=== PATIENT | female | born 1975 | race Caucasian/White ===

== ENCOUNTER 2023-10-04 15:53 | Emergency (ER) | payer BC ==
--- OUTSIDE RECORDS SUMMARY | 2023-10-04 15:56 | XMS REPORT | Clinical Summary ---
:1975 Author Organization [facility] MD [facility] Address [address] [place] [address] Care Team Providers Name Role Phone Mandeep Collazo MD Primary Care Provider Cori Weathers MD Unavailable Urszula Lechuga MD Unavailable Shakir Altman MD Unavailable Jena Son MD Unavailable Allergies No known active allergies Medications Medication Sig Dispensed Refills Start End Date Status Date esomeprazole Take 40 mg by 0 Act joanie (NexIUM) 40 MG mouth every capsule morning. montelukast Take 10 mg by 0 Acti ve (SINGULAIR) 10 mouth daily. mg tablet zolpidem Take 1 tablet by 5 Act joanie (AMBIEN) 10 mg mouth daily. 7 tabletIndication s: Restart this medication on the evening of 12/20/20 venlafaxine Take by mouth 0 Acti ve (EFFEXOR) 37.5 twice daily. mg tablet multivitamin Take by mouth. 0 Ac tive (THERAGRAN) tablet Saxenda 3 mg/0.5 Take 0.6 mg by 0 Active mL (18 mg/3 mL) mouth daily. 2 pnij Inject subcutaneously 0.6mg/day x 7 days then increase by 0.6 mg more til 3mg/day omeprazole Take 1 capsule by 0 A ctive (PriLOSEC) 40 MG mouth daily. 2 capsule tamoxifen Take 1 tablet (20 90 tablet 3 Ac tive (NOLVADEX) 20 mg mg) by mouth 3 tabletIndication daily. s: Cancer of right female breast, not otherwise specified tamoxifen Take 1 tablet (20 90 tablet 3 12/02/19 Di scontinued (NOLVADEX) 20 mg mg) by mouth 1 23 (Reorder) tabletIndication daily. 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 Cancer Staging: Clinical stage from 11/16: Stage IA (T1b, N0, M0) - Signed by Alexsandra Mary MD on 11/17/2016 Encounters Date Type Department Care Team Description 12/02/2022 Refill MD [facility] in [place], Radha B, Cancer of r ight [place] - Breast RN female b reast, not Medical Oncology otherwise specified [address] [facility] [address] [place] [address] 10/13/2022 Follow-Up MD [facility] in [place], Tabitha B, Infiltrating duct 11:00 AM ASSOCIATE CHIEF NURSE [place] - [place] carcinoma, NOS of Medical Oncology Norm, upper-inner quadrant [address] [facility] [place], ART GLASS SETTER of breast < Female; [place] Right> (Primary Dx) [address] [place] [address] 10/13/2022 Follow-Up MD [facility] in [place], Infiltrating duct 10:00 AM ASSOCIATE CHIEF NURSE [place] - Breast MD Mandeep carcinom a, NOS of Surgery Oncology upper-inner quadrant [address] [facility] of breast < Female; [address] Right> [place] [address] 10/13/2022 Ancillary Diagnostic Imaging Damaris Freitas, Infiltr ating duct 7:45 AM ASSOCIATE CHIEF NURSE Procedure in [facility] [place] [id number] [facility] upper-inner quadrant [place] of breast <F emale; [address], [address] [place] [address] 10/13/2022 Travel after 10/04/2022 Immunizations Name Administration Dates Next Due Influenza (IM) Preservative Free 06/22/2020 Influenza, Unspecified 10/10/2019, 10/10/2019 Pneumococcal Conjugate 13-Valent 06/22/2020 Tdap 08/02/2018, 08/02/2018 Surgical History Surgery Date Site/Laterality Comments BACK SURGERY 05/06/2015 - Disc fusion L4-5 , S1 06/05/2015 LAPAROSCOPIC CHOLECYSTECOMY 10/06/2015 - 11/05/2015 CARPAL TUNNEL RELEASE Bilateral SC MASTECTOMY PARTIAL 11/04/2016 Right Procedure: SEGMENTAL MASTECTOMY - NEE DLE LOC; Surgeon: Mandeep Collazo MD; Location: [facility] OR; Service: BREAST SC INTRAOP SENTINEL LYMPH 11/04/2016 Right Proced ure: INTRAOPERATIVE NODE ID W/DYE INJECTION LYMPHATI C MAPPING; Surgeon: Mandeep Collazo MD; Location: [facility] OR; Service: BREAST SC BX/EXC LYMPH NODE OPEN 11/04/2016 Axilla/Right Proced ure: SENTINEL NODE DEEP AXILLARY NODE BIOPSY - AXIL LA; Surgeon: Mandeep Collazo MD; [facility]; Service: BREAST SC REVISION OF 12/19/2020 Breast/Right Procedure: HO ION OF RECONSTRUCTED BREAST RECONSTRUCT ED BREAST; Surgeon: Shakir Altman MD; Location: [facility]; Service: PLS - P LASTIC SURGERY SC MASTOPEXY 12/19/2020 Breast/Left Procedure: MASTO PEXY FOR SYMMETRY; Surgeo n: Shakir Altman MD; Lo cation: [facility] OR; Service : PLS - PLASTIC SURGERY SC GRAFTING OF AUTOLOGOUS 12/19/2020 Abdomen/N/A Proced ure: GRAFTING OF FAT BY LIPO 50 CC OR LESS AUTOLO GOUS FAT HARVESTED BY LIPOSUCTION T ECHNIQUE TO BREASTS; Surg anita: Shakir Altman MD; [facility]; Service: PLS - P LASTIC SURGERY SPINAL CORD STIMULATOR 12/07/2021 - IMPLANT 01/03/2022 Medical History Medical History Date Comments Restless legs syndrome (RLS) Arthritis Migraine Gastroesophageal reflux disease Environmental allergy Degeneration of lumbar intervertebral disc Social History Tobacco Use Types Packs/Day Years Used Date Smoking Tobacco: Never Smokeless Tobacco: Never Alcohol Use Standard Drinks/Week Comments Yes 0 (1 standard drink = 0.6 oz pure alcoho l) infrequent social consumption Sex and Gender Information Value Date Recorded Sex Assigned at Not on file Gender Identity Not on file Sexual Orientation Not on file Job Start Date Occupation Industry Not on file Not on file Not on file Obstetrics History Para Term AB IAB SAB Ectopic Multiple Living Live Births 3 2 Date Outcome GA Total Labor/2nd/3rd Weight Sex Delivery Anes PTL Brianna A 1 A5 Name Clin Labor Para Para Comments Menarche 9 Parity 20 Breast fed 4 mo OCP use ~26 yrs (discontinued yesterday) Currently on her menstrual period Last Filed Vital Signs Vital Sign Reading Time Taken Comments Blood Pressure 129/89 10/13/2022 8:49 AM ASSOCIATE CHIEF NURSE Pulse 82 10/13/2022 8:49 AM ASSOCIATE CHIEF NURSE Temperature 36.4 C (97.5 F) 10/13/2022 8:49 AM ASSOCIATE CHIEF NURSE Respiratory Rate 18 10/13/2022 8:49 AM ASSOCIATE CHIEF NURSE Oxygen Saturation - - Inhaled Oxygen Concentration - - Weight 71.7 kg (158 lb 1.1 oz) 10/13/2022 8:50 AM ASSOCIATE CHIEF NURSE Height - - Body Mass Index 28.01 10/12/2016 10:06 AM ASSOCIATE CHIEF NURSE Plan of Treatment Date Type Department Care Team Description 10/13/2023 8:20 Ancillary Procedure Diagnostic Imaging Preston Zheng, AM ASSOCIATE CHIEF NURSE in [facility] [employer] [address] [facility] [address] [place], [place] [address] [address] [place] [address] [phone] 10/13/2023 9:05 Ancillary Procedure Diagnostic Imaging Preston Zheng, AM ASSOCIATE CHIEF NURSE in [facility] [employer] [address] [facility] [address] [facility] [address] [address] [phone] 10/13/2023 1:00 Follow-Up MD [facility] in [place], PM ASSOCIATE CHIEF NURSE [facility] - Medical ART GLASS SETTER Oncology [address] [facility] [id number] [place] [address] [phone] Health Maintenance Due Date Last Done Comments COVID-19 Vaccination (#1) 1980 Procedures Procedure Name Priority Date/Time Associated Diagnosis Comme nts MAMMO DIGITAL Routine 10/13/2022 7:51 AM Infiltrating duct Res ults for this DIAGNOSTIC ASSOCIATE CHIEF NURSE carcinoma, NOS of procedure are in BILATERAL [place] upper-inner quadrant the results of breast <Female; section. Right> after 10/04/2022 Results Mammography Digital Diagnostic Bilateral with Ronald (10/13/2022 7:51 AM ASSOCIATE CHIEF NURSE) Anatomical Region Laterality Modality Breast Bilateral Mammography Specimen (Source) Anatomical Collection Method Collection Time Re ceived Time Location / / Volume Laterality 10/13/2022 7:53 AM ASSOCIATE CHIEF NURSE Impressions 10/13/2022 7:53 AM ASSOCIATE CHIEF NURSE There is no mammographic evidence of malignancy. Follow-up mammogram in 1 year is recomme nded. BI-RADS Category 2: Benign Finding(s) Narrative 10/13/2022 7:53 AM ASSOCIATE CHIEF NURSE CLINICAL INDICATION: Patient is a 47 year old female and is s een for history of breast cancer MAMMO DIGITAL DIAGNOSTIC BILATERAL W LUIS O Digital Mammogram evaluated with Compute r Aided Detection (CAD). COMPARISON: The present examination has been compare d to prior imaging studies performed at [facility] on 10/23/2017, 10/18/2018, 10/17/2019, 10/14/2020 and 10/13/2021. FINDINGS: There are scattered areas of fibroglandu lar density. Postoperative changes are noted. No merino spicious mass, asymmetry, calcification, or distortion is seen. Tomosynthesis performed in CC and MLO pr ojections. Procedure Note Sami Webster MD - 10/13/2022 CLINICAL INDICATION: Patient is a 47 year old female and is s een for history of breast cancer MAMMO DIGITAL DIAGNOSTIC BILATERAL W LUIS O Digital Mammogram evaluated with Compute r Aided Detection (CAD). COMPARISON: The present examination has been compare d to prior imaging studies performed at [facility] on 10/23/2017, 10/18/2018, 10/17/2019, 10/14/2020 and 10/13/2021. FINDINGS: There are scattered areas of fibroglandu lar density. Postoperative changes are noted. No susp icious mass, asymmetry, calcification, or distortion is seen. Tomosynthesis performed in CC and MLO pr ojections. IMPRESSION: There is no mammographic evidence of mal ignancy. Follow-up mammogram in 1 year is recomme nded. 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
--- OUTSIDE RECORDS SUMMARY | 2023-10-04 16:00 | XMS REPORT | Continuity of Care Document ---
:1975 Author Organization [facility] t Address [address] [place] [address] Care Team Providers Name Role Phone [phone] Primary Care Physician Unavailable SYSTEM, PROVIDER NOT IN Attending Clinician Unavailable GUILLE MENDOZA Attending Clinician Unavailable [email or web address] Attending Clinician Unavailable Radha Waggoner RN Attending Clinician Unavailable Tabitha Dooley Attending Clinician Maliha Zheng APRN Attending Clinician TABITHA HANNA Attending Clinician Unavailable Mandeep Boyle MD Attending Clinician MANDEEP BOYLE Attending Clinician Unavailable Damaris Francis Attending Clinician DAMARIS PRUITT Attending Clinician Unavailable ASUNCION GIORDANO Attending Clinician Unavailable WAI HORN Attending Clinician Unavailable GEOVANI FALK Attending Clinician Unavailable GUILLE MENDOZA DDS Attending Clinician Unavailable Doctor Unassigned, [place] Attending Clinician Unavailable Lab, Adc Fam Pob I Attending Clinician Unavailable Ayala Caruso Attending Clinician AYALA GALO Attending Clinician Unavailable MATT WERNER Attending Clinician Unavailable [email or web address] Admitting Clinician Unavailable Payers Payer Name Policy Type Policy Number Effective Date Expiration Date S celio BCBSTX PPO [id number] 2016 00:00:00 [place] [id number] 2016 00:[place]00 [place] Problems Condition Condition Condition Status Onset Resolution Last Treating Co mments Source Name Details Category Date Date Treatment Clinician Date 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 [place] 00 [place] 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 rmann bral disc bral disc (disorder) (disorder) Problem 10/30/2015 [facility] Care Givers Gastroesop Gastroeso Problem 2015-10-30 Memoria hageal phageal 05:02:28 l reflux reflux [place] disease disease (disorder) (disorder) Problem 10/30/2015 [facility] Low back Low back Problem 2015-10-30 Memoria pain pain 05:02:28 l (disorder) (disorder) He rmann Problem 10/30/2015 [facility] Restless Restless Problem 2015-10-30 Memoria legs legs 05:02:28 l (disorder) (disorder) He rmann Problem 10/30/2015 [facility] Allergies, Adverse Reactions, Alerts Allergy Allergy Status Severity Reaction(s) Onset Inactive Treating Comm ents Source Name Type Date Date Clinician NO KNOWN Drug Active Univers ALLERGIE Class ity of S [facility] No Known No Known Active Memori a Medicati Medicati l on on [place] Allergie Allergie s s Social History Social Habit Start Date Stop Date Quantity Comments Source Exposure to Not sure [facility] SARS-CoV-2 (event) Sexual orientation [facility] History of Social 2022-10-13 2022-10-13 Univers ity of function 00:00:00 00:00:00 [facility] Alcohol intake 2022-10-13 2022-10-13 Current drinker of Un iversity of 00:00:00 00:00:00 alcohol (finding) [facility] Tobacco use and 2018-02-23 2018-02-23 Smokeless tobacco Un iversity of exposure 00:00:00 00:00:00 non-user Tommy benz [facility] Alcohol Comment 2016-10-12 2016-10-12 infrequent social Un iversity of 00:00:00 00:00:00 consumption Tommy waddell [facility] Sex Ass[birth year] At [birth year] Universit y of 00:00:00 00:00:00 Tommy benz [facility] Smoking Status Start Date Stop Date Source Unknown if ever smoked [facility] Never smoked tobacco [facility] Medications Ordered Filled Start Stop Current Ordering Indication Dosage Frequency Signature Comments Components Source Medication Medication Date Date Medication? Clinician (SIG) Name Name tamoxifen Yes Cancer of 20mg Take 1 U nivers (NOLVADEX) 1-27 right tablet (20 it y of 20 mg 00:00: female mg) by [place] tablet 00 breast, not mouth otherwise daily. [facility] [facility] esomeprazol 2021-11 Yes 40mg Take 40 mg Univers e (NexIUM) 2-08 by mouth ity o f 40 MG 09:24: every [place] capsule 57 morning. MD [facility] [facility] montelukast 2021-11 Yes 10mg Take 10 mg Univers (SINGULAIR) 2-08 by mouth ity of 10 mg 09:24: daily. [place] tablet 57 MD [facility] [facility] venlafaxine 2021-11 Yes Take by Uni vers (EFFEXOR) 2-08 mouth ity of 37.5 mg 09:24: twice [place] tablet 57 daily. MD [facility] [facility] multivitami 2021-11 Yes Take by Uni vers n 2-08 mouth. ity of (THERAGRAN) 09:24: [place] tablet 57 MD [facility] [facility] Saxenda 3 Yes .6mg Take 0.6 Univ ers mg/0.5 mL 6-01 mg by ity of (18 mg/3 00:00: mouth [place] mL) pnij 00 daily. MD Lidya bridges usly Cancer 0.6mg/day Center x 7 days then increase by 0.6 mg more til 3mg/day omeprazole Yes 40mg Take 1 Unive rs (PriLOSEC) 3-23 capsule by ity of 40 MG 00:00: mouth [place] capsule 00 daily. MD [facility] [facility] tamoxifen 0 2022- No Cancer of 20mg Take 1 Univers (NOLVADEX) 06-15 right tablet (20 i ty of 20 mg 00:00: 00:00 female mg) by [place] tablet 00 :00 breast, not mouth MD otherwise daily. [facility] [facility] zolpidem Yes 10mg Take 1 Univers (AMBIEN) 10 4-05 tablet by ity of mg tablet 00:00: mouth [place] 00 daily. MD Ad[place] bridges [facility] Saline Lock 2014-11 No Yasir 10 mL, M emoria Flush 2-23 Gallego Soln, IV l 14:49: OUTREACH [employer]UCATION [employer] WORKER Push, As Indicated PRN for flush, first dose 10/28/15 8:49:00 HAND FOLDER Dilaudid 2014-11 No Yasir 0.5 mg = Me moria 2-23 Gallego 0.25 mL, l 14:49: OUTREACH [employer] WORKER Injection, [place] 00 IV Push, q10min PRN for pain severe (7-10), first dose 10/28/15 8:49:00 HAND FOLDER LR 1,000 mL 2014-11 No Yasir 1,000 mL, Memoria 2-23 Gallego IV, 75 l 14:49: OUTREACH AND [employer]UCATION SOCIAL WORKER mL/hr, start date 10/28/15 8:49:00 HAND FOLDER Saline Lock 2014-11 No Yasir 10 mL, M emoria Flush 2-23 Gallego Soln, IV l 14:49: OUTREACH AND [employer]UCATION SOCIAL WORKER Push, As [place] 00 Indicated PRN for flush, first dose 10/28/15 8:49:00 HAND FOLDER Dilaudid 2014-11 No Yasir 0.5 mg = Me moria 2-23 Gallego 0.25 mL, l 14:49: OUTREACH AND [employer]UC[employer] SOCIAL WORKER Injection, [place] 00 IV Push, q10min PRN for pain severe (7-10), first dose 10/28/15 8:49:00 HAND FOLDER LR 1,000 mL 2014-11 No Yasir 1,000 mL, Memoria 2-23 Gallego IV, 75 l 14:49: OUTREACH AND [employer]UCATION SOCIAL WORKER mL/hr, Moreno 00 start date 10/28/15 8:49:00 HAND FOLDER Dilaudid 2014-11 No Yasir 0.5 mg = Me moria 2-23 Gallego 0.25 mL, l 14:49: OUTREACH AND [employer]UC[employer] SOCIAL WORKER Injection, [place] 00 IV Push, q10min PRN for pain severe (7-10), first dose 10/28/15 8:49:00 HAND FOLDER LR 1,000 mL 2014-11 No Yasir 1,000 mL, Memoria 2- Gallego IV, 75 l 14:49: OUTREACH AND [employer]UCATION SOCIAL WORKER mL/hr, start date 10/28/15 8:49:00 HAND FOLDER Saline Lock 2014-11 No Yasir 10 mL, M emoria Flush 2- Gallego Soln, IV l 14:49: OUTREACH AND [employer]UC[employer] SOCIAL WORKER Push, As Indicated PRN for flush, first dose 10/28/15 8:49:00 HAND FOLDER [facility] 2014-11 No Mesfin 300 mL, Memoria Medication - Barrett Soln-IV, l 14:46: IV, Once, first dose 10/28/15 8:46:00 HAND FOLDER, stop date 10/28/15 8:46:00 HAND FOLDER [facility] 2014-11 No Mesfin 300 mL, Memoria Medication - Barrett Soln-IV, l 14:46: IV, Once, first dose 10/28/15 8:46:00 HAND FOLDER, stop date 10/28/15 8:46:00 HAND FOLDER [facility] 2014-11 No Mesfin 300 mL, Memoria Medication - Barrett Soln-IV, l 14:46: IV, Once, first dose 10/28/15 8:46:00 HAND FOLDER, stop date 10/28/15 8:46:00 HAND FOLDER lidocaine 2014-11 No Yasir 1 mL, Cruz pablito 2-23 Gallego Injection, l 14:26: OUT[employer]ACH [employer] WORKER IV, Once, first dose 10/28/15 8:26:00 HAND FOLDER, stop date 10/28/15 8:26:00 HAND FOLDER propofol 2014-11 No Yasir 40 mg = 4 M emoria 2-23 Gallego mL, l 14:26: OUTREACH AND [employer] SOC[employer] WORKER Emulsion, IV, Once, first dose 10/28/15 8:26:00 HAND FOLDER, stop date 10/28/15 8:26:00 HAND FOLDER lidocaine 2014-11 No Yasir 1 mL, Cruz pablito 2-23 Gallego Injection, l 14:26: OUTREACH AND [employer]ATION SOC[employer] WORKER IV, Once, first dose 10/28/15 8:26:00 HAND FOLDER, stop date 10/28/15 8:26:00 HAND FOLDER propofol 2014-11 No Yasir 40 mg = 4 M emoria 2- Gallego mL, l 14:26: OUTREACH AND [employer]UCATION SOCIAL WORKER Emulsion, Moreno 00 IV, Once, first dose 10/28/15 8:26:00 HAND FOLDER, stop date 10/28/15 8:26:00 HAND FOLDER lidocaine 2014-11 No Yasir 1 mL, Cruz pablito - Gallego Injection, l 14:26: OUTREACH AND EDUCATION SOCIAL WORKER IV, Once, [place] 00 first dose 10/28/15 8:26:00 HAND FOLDER, stop date 10/28/15 8:26:00 HAND FOLDER propofol 2014-11 No Yasir 40 mg = 4 M emoria - Gallego mL, l 14:26: OUTREACH AND EDUCATION SOCIAL WORKER Emulsion, [place] 00 IV, Once, first dose 10/28/15 8:26:00 HAND FOLDER, stop date 10/28/15 8:26:00 HAND FOLDER fentaNYL 2014-11 No Yasir 100 mcg = M emoria 2- Gallego 2 mL, l 14:22: OUTREACH AND [employer]UCATION SOCIAL WORKER Injection, Moreno 00 IV, Once, first dose 10/28/15 8:22:00 HAND FOLDER, stop date 10/28/15 8:22:00 HAND FOLDER midazolam 2014-11 No Yasir 2 mg = 2 M emoria - Gallego mL, l 14:22: OUTREACH AND [employer]UCATION SOCIAL WORKER Injection, [place] 00 IV, Once, first dose 10/28/15 8:22:00 HAND FOLDER, stop date 10/28/15 8:22:00 HAND FOLDER fentaNYL 2014-11 No Yasir 100 mcg = M emoria 2- Gallego 2 mL, l 14:22: OUTREACH AND [employer]UCATION SOC[employer] WORKER Injection, Moreno 00 IV, Once, first dose 10/28/15 8:22:00 HAND FOLDER, stop date 10/28/15 8:22:00 HAND FOLDER midazolam 2014-11 No Yasir 2 mg = 2 M emoria -23 Gallego mL, l 14:22: OUTREACH AND [employer]UCATION SOCIAL WORKER Injection, Moreno 00 IV, Once, first dose 10/28/15 8:22:00 HAND FOLDER, stop date 10/28/15 8:22:00 HAND FOLDER fentaNYL 2014-11 No Yasir 100 mcg = M emoria 2-23 Gallego 2 mL, l 14:22: OUTREACH AND EDUCATION SOCIAL WORKER Injection, Moreno 00 IV, Once, first dose 10/28/15 8:22:00 HAND FOLDER, stop date 10/28/15 8:22:00 HAND FOLDER midazolam 2014-11 No Yasir 2 mg = 2 M emoria 2-23 Gallego mL, l 14:22: OUTREACH AND [employer]UCATION SOCIAL WORKER Injection, Moreno 00 IV, Once, first dose 10/28/15 8:22:00 HAND FOLDER, stop date 10/28/15 8:22:00 HAND FOLDER LR 1,000 mL 2014-11 No Herman K 1,000 mL, Memoria 2-23 Lewis IV, 30 l 12:06: mL/hr, [place] 00 start date 10/28/15 6:06:00 HAND FOLDER Lidocaine 2014-11 No Herman K 0.2 mL, Mem oria 2% 0.2 mL 2-23 Lewis Injection, l IV Start 12:06: Subcutaneo Her keene [[facility]] 00 us, Once PRN for other (see comment), first dose 10/28/15 6:06:00 HAND FOLDER LR 1,000 mL 2014-11 No Herman K 1,000 mL, Memoria 2-23 Lewis IV, 30 l 12:06: mL/hr, Moreno 00 start date 10/28/15 6:06:00 HAND FOLDER Lidocaine 2014-11 No Herman K 0.2 mL, Mem oria 2% 0.2 mL 2-23 Lewis Injection, l IV Start 12:06: Subcutaneo [facility] keene [[facility]] 00 us, Once PRN for other (see comment), first dose 10/28/15 6:06:00 HAND FOLDER LR 1,000 mL 2014-11 No Herman K 1,000 mL, Memoria 2-23 Lewis IV, 30 l 12:06: mL/hr, Moreno 00 start date 10/28/15 6:06:00 HAND FOLDER Lidocaine 2014-11 No Herman K 0.2 mL, Mem oria 2% 0.2 mL 2-23 Lewis Injection, l IV Start 12:06: Subcutaneo [facility] keene [[place]] 00 us, Once PRN for other (see comment), first dose 10/28/15 6:06:00 HAND FOLDER Keflex 500 No Mohammad 500 mg = 1 Memoria mg oral 7-29 Etminan caps, l capsule 13:07: Oral, [place] 00 q8hr, # 30 caps, 0 Refill(s) Keflex 500 No Mohammad 500 mg = 1 Memoria mg oral - Etminan caps, l capsule 13:07: Oral, Moreno 00 q8hr, # 30 caps, 0 Refill(s) Keflex 500 No Mohammad 500 mg = 1 Memoria mg oral - Etminan caps, l capsule 13:07: Oral, [place] 00 q8hr, # 30 caps, 0 Refill(s) Soma 350 mg No Mohammad 350 mg = 1 Memoria oral tablet 06-03 Etminan tabs, l 13:06: Oral, TID, [place] 00 X 14 days, # 42 tabs, 0 Refill(s) Soma 350 mg No Mohammad 350 mg = 1 Memoria oral tablet 06-03 Etminan tabs, l 13:06: Oral, TID, Moreno 00 X 14 days, # 42 tabs, 0 Refill(s) Soma 350 mg No Mohammad 350 mg = 1 Memoria oral tablet 06-03 Etminan tabs, l 13:06: Oral, TID, Moreno 00 X 14 days, # 42 tabs, 0 Refill(s) simethicone No Oh G 80 mg = 1 Memoria 06-02 Sreshta tabs, l 20:15: Tab-Chew, [place] 00 Oral, QID PRN for gas, first dose 06/02/15 15:15:00 CDT simethicone No Oh G 80 mg = 1 Memoria 06-02 Sreshta tabs, l 20:15: Tab-Chew, Moreno 00 Oral, QID PRN for gas, first dose 06/02/15 15:15:00 CDT simethicone No Oh G 80 mg = 1 Memoria 06-02 Sreshta tabs, l 20:15: Tab-Chew, [place] 00 Oral, QID PRN for gas, first dose 06/02/15 15:15:00 CDT Lo Loestrin No Oh G 1 tabs, Memoria Fe 1 mg-10 06-02 Sreshta Misc, l mcg oral 14:00: Oral, [place] tablet 00 Daily, first dose 06/02/15 9:00:00 CDT, Patient's Own Meds NexIUM OTC No Oh G 40 mg, Memoria 7- Sreshta Misc, l 14:00: Oral, More[place] 00 Daily, first dose 06/02/15 9:00:00 CDT, Patient's Own Meds Zyrtec Yes Oh G 10 mg = 1 M emoria 7- Sreshta tabs, Tab, l 14:00: Oral, [place] 00 Daily, first dose 06/02/15 9:00:00 CDT multivitami 2014-0 No Mohammad 1 tabs, Memoria n with - Etminan Tab, Oral, l minerals 14:00: Daily, More[place] 00 first dose 06/02/15 9:00:00 CDT Lo Loestrin 0 No Oh G 1 tabs, Memoria Fe 1 mg-10 06-02 Sreshta Misc, l mcg oral 14:00: Oral, Moreno tablet Daily, first dose 06/02/15 9:00:00 CDT, Patient's Own Meds NexIUM OTC No Oh G 40 mg, Memoria - Sreshta Misc, l 14:00: Oral, [place] 00 Daily, first dose 06/02/15 9:00:00 CDT, Patient's Own Meds Zyrtec Yes Oh G 10 mg = 1 M emoria - Sreshta tabs, Tab, l 14:00: Oral, [place] 00 Daily, first dose 06/02/15 9:00:00 CDT multivitami 2014-0 No Mohammad 1 tabs, Memoria n with - Etminan Tab, Oral, l minerals 14:00: Daily, More[place] 00 first dose 06/02/15 9:00:00 CDT Lo Loestrin 2014-0 No Oh G 1 tabs, Memoria Fe 1 mg-10 - Sreshta Misc, l mcg oral 14:00: Oral, [place] tablet 00 Daily, first dose 06/02/15 9:00:00 CDT, Patient's Own Meds NexIUM OTC 0 No Oh G 40 mg, Memoria 7- Sreshta Misc, l 14:00: Oral, [place] Daily, first dose 06/02/15 9:00:00 CDT, Patient's Own Meds Zyrtec Yes Oh G 10 mg = 1 M emoria 06-02 Sreshta tabs, Tab, l 14:00: Oral, Moreno Daily, first dose 06/02/15 9:00:00 CDT multivitami No Mohammad 1 tabs, Memoria n with 06-02 Etminan Tab, Oral, l minerals 14:00: Daily, [place] 00 first dose 06/02/15 9:00:00 CDT Colace No Mohammad 200 mg = 2 M emoria 06-02 Etminan caps, Cap, l 02:00: Oral, BID, first dose 06/01/15 21:00:00 CDT Colace No Mohammad 200 mg = 2 M emoria 06-02 Etminan caps, Cap, l 02:00: Oral, BID, first dose 06/01/15 21:00:00 CDT Milk of No Mohammad 30 mL, Cruz pablito Magnesia 28 Etminan Susp, l 02:00: Oral, BID, first dose 06/01/15 21:00:00 CDT Milk of No Mohammad 30 mL, Cruz pablito Magnesia -28 Etminan Susp, l 02:00: Oral, BID, first dose 06/01/15 21:00:00 CDT Colace No Mohammad 200 mg = 2 M emoria 06-02 Etminan caps, Cap, l 02:00: Oral, BID, first dose 06/01/15 21:00:00 CDT Milk of No Mohammad 30 mL, Cruz pablito Magnesia -28 Etminan Susp, l 02:00: Oral, BID, [place] 00 first dose 06/01/15 21:00:00 CDT ceFAZolin No Mohammad 2 gm, Mem oria 06-01 Etminan Soln-IV, l 22:30: IV [place] 00 Piggyback, q8hr, infuse over 30 minutes, order duration: 3 doses, first dose 06/01/15 17:30:00 CDT, stop date 06/02/15 17:29:00 CDT ceFAZolin 2014-0 No Mohammad 2 gm, Mem oria 7-27 Etminan Soln-IV, l 22:30: IV [place] 00 Piggyback, q8hr, infuse over 30 minutes, order duration: 3 doses, first dose 06/01/15 17:30:00 CDT, stop date 06/02/15 17:29:00 CDT ceFAZolin 2014-0 No Mohammad 2 gm, Mem oria 7-27 Etminan Soln-IV, l 22:30: IV [place] 00 Piggyback, q8hr, infuse over 30 minutes, order duration: 3 doses, first dose 06/01/15 17:30:00 CDT, stop date 06/02/15 17:29:00 CDT OxyCONTin 2014-0 No Mohammad 20 mg = 2 Memoria 7-27 Etminan tabs, l 21:00: Tab-ER, [place] 00 Oral, q12hr, first dose 06/01/15 16:00:00 CDT OxyCONTin 2014-0 No Mohammad 20 mg = 2 Memoria 7-27 Etminan tabs, l 21:00: Tab-ER, [place] 00 Oral, q12hr, first dose 06/01/15 16:00:00 CDT OxyCONTin 2014-0 No Mohammad 20 mg = 2 Memoria 7-27 Etminan tabs, l 21:00: Tab-ER, More[place] 00 Oral, q12hr, first dose 06/01/15 16:00:00 CDT Saline Lock 0 No Mohammad 10 mL, Memoria Flush 7-27 Etminan Soln, IV l 20:00: Push, More[place] 00 q8hr, first dose 06/01/15 15:00:00 CDT Saline Lock 2014-0 No Mohammad 10 mL, Memoria Flush 7-27 Etminan Soln, IV l 20:00: Push, [place] 00 q8hr, first dose 06/01/15 15:00:00 CDT Saline Lock 0 No Mohammad 10 mL, Memoria Flush 7-27 Etminan Soln, IV l 20:00: Push, [place] 00 q8hr, first dose 06/01/15 15:00:00 CDT Benadryl No Mohammad 25 mg = 1 Memoria -27 Etminan caps, Cap, l 19:15: Oral, q6hr [place] 00 PRN for itching, first dose 06/01/15 14:15:00 CDT morphine No Mohammad 3 mg = 0.3 Memoria - Etminan mL, l 19:15: Injection, More[place] 00 IV Push, q3hr PRN for breakthrou gh pain, first dose 06/01/15 14:15:00 CDT D5W - No Mohammad 1,000 mL, Mem oria 0.45NaCl - Etminan IV, 100 l with 20 mEq 19:15: mL/hr, Herm rocio KCl 1,000 00 start date mL 06/01/15 14:15:00 CDT Robaxin No Mohammad 1 gm, IV Me moria IVPB - Etminan Piggyback, l 19:15: q8hr PRN [place] 00 for muscle spasms, infuse over 30 minutes, first dose 06/01/15 14:15:00 CDT Phenergan No Mohammad 25 mg = 1 Memoria - Etminan mL, l 19:15: Injection, More[place] 00 IM, q6hr PRN for nausea/vom iting, first dose 06/01/15 14:15:00 CDT Superior 10 No Mohammad 2 tabs, Me moria mg-325 mg - Etminan Tab, Oral, l oral tablet 19:15: q4hr PRN He rmann 00 for pain severe (7-10), first dose 06/01/15 14:15:00 CDTMax 4gm acetaminop hen in 24 hours Saline Lock No Mohammad 10 mL, Memoria Flush - Etminan Soln, IV l 19:15: Push, As [place] 00 Indicated PRN for flush, first dose 06/01/15 14:15:00 CDT Tylenol No Mohammad 500 mg = 1 Memoria 7-27 Etminan tabs, Tab, l 19:15: Oral, q6hr More[place] 00 PRN for temp greater than 101.5 F (38.6 C), first dose 06/01/15 14:15:00 CDTMax 4gm acetaminop hen in 24 hours bisacodyl No Mohammad 10 mg = 2 Memoria 7-27 Etminan tabs, l 19:15: Tab-DR, [place] 00 Oral, Daily PRN for constipati on, first dose 06/01/15 14:15:00 CDT Zofran No Mohammad 4 mg = 2 Mem oria 7-27 Etminan mL, l 19:15: Injection, More[place] 00 IV Push, q6hr PRN for nausea/vom iting, first dose 06/01/15 14:15:00 CDT Benadryl No Mohammad 25 mg = 1 Memoria 7-27 Etminan caps, Cap, l 19:15: Oral, q6hr [place] 00 PRN for itching, first dose 06/01/15 14:15:00 CDT morphine No Mohammad 3 mg = 0.3 Memoria 7-27 Etminan mL, l 19:15: Injection, More[place] 00 IV Push, q3hr PRN for breakthrou gh pain, first dose 06/01/15 14:15:00 CDT D5W - No Mohammad 1,000 mL, Mem oria 0.45NaCl 7-27 Etminan IV, 100 l with 20 mEq 19:15: mL/hr, Herm rocio KCl 1,000 00 start date mL 06/01/15 14:15:00 CDT Robaxin No Mohammad 1 gm, IV Me moria IVPB 7-27 Etminan Piggyback, l 19:15: q8hr PRN More[place] 00 for muscle spasms, infuse over 30 minutes, first dose 06/01/15 14:15:00 CDT Phenergan No Mohammad 25 mg = 1 Memoria 7-27 Etminan mL, l 19:15: Injection, More[place] 00 IM, q6hr PRN for nausea/vom iting, first dose 06/01/15 14:15:00 CDT Superior 10 No Mohammad 2 tabs, Me moria mg-325 mg - Etminan Tab, Oral, l oral tablet 19:15: q4hr PRN He rmann 00 for pain severe (7-10), first dose 06/01/15 14:15:00 CDTMax 4gm acetaminop hen in 24 hours Saline Lock No Mohammad 10 mL, Memoria Flush 06-01 Etminan Soln, IV l 19:15: Push, As Moreno 00 Indicated PRN for flush, first dose 06/01/15 14:15:00 CDT Tylenol No Mohammad 500 mg = 1 Memoria - Etminan tabs, Tab, l 19:15: Oral, q6hr More[place] 00 PRN for temp greater than 101.5 F (38.6 C), first dose 06/01/15 14:15:00 CDTMax 4gm acetaminop hen in 24 hours bisacodyl No Mohammad 10 mg = 2 Memoria - Etminan tabs, l 19:15: Tab-DR, [place] 00 Oral, Daily PRN for constipati on, first dose 06/01/15 14:15:00 CDT Zofran No Mohammad 4 mg = 2 Mem oria - Etminan mL, l 19:15: Injection, [place] 00 IV Push, q6hr PRN for nausea/vom iting, first dose 06/01/15 14:15:00 CDT Benadryl No Mohammad 25 mg = 1 Memoria - Etminan caps, Cap, l 19:15: Oral, q6hr [place] 00 PRN for itching, first dose 06/01/15 14:15:00 CDT morphine No Mohammad 3 mg = 0.3 Memoria - Etminan mL, l 19:15: Injection, [place] 00 IV Push, q3hr PRN for breakthrou gh pain, first dose 06/01/15 14:15:00 CDT D5W - No Mohammad 1,000 mL, Mem oria 0.45NaCl 7- Etminan IV, 100 l with 20 mEq 19:15: mL/hr, Herm rocio KCl 1,000 00 start date mL 06/01/15 14:15:00 CDT Robaxin No Mohammad 1 gm, IV Me moria IVPB 7- Etminan Piggyback, l 19:15: q8hr PRN Moreno 00 for muscle spasms, infuse over 30 minutes, first dose 06/01/15 14:15:00 CDT Phenergan No Mohammad 25 mg = 1 Memoria - Etminan mL, l 19:15: Injection, Moreno 00 IM, q6hr PRN for nausea/vom iting, first dose 06/01/15 14:15:00 CDT Superior 10 No Mohammad 2 tabs, Me moria mg-325 mg 06-01 Etminan Tab, Oral, l oral tablet 19:15: q4hr PRN He rmann for pain severe (7-10), first dose 06/01/15 14:15:00 CDTMax 4gm acetaminop hen in 24 hours Saline Lock No Mohammad 10 mL, Memoria Flush 06-01 Etminan Soln, IV l 19:15: Push, As Moreno Indicated PRN for flush, first dose 06/01/15 14:15:00 CDT Tylenol No Mohammad 500 mg = 1 Memoria - Etminan tabs, Tab, l 19:15: Oral, q6hr Moreno 00 PRN for temp greater than 101.5 F (38.6 C), first dose 06/01/15 14:15:00 CDTMax 4gm acetaminop hen in 24 hours bisacodyl No Mohammad 10 mg = 2 Memoria 7-27 Etminan tabs, l 19:15: Tab-DR, Moreno 00 Oral, Daily PRN for constipati on, first dose 06/01/15 14:15:00 CDT Zofran No Mohammad 4 mg = 2 Mem oria - Etminan mL, l 19:15: Injection, Moreno IV Push, q6hr PRN for nausea/vom iting, first dose 06/01/15 14:15:00 CDT Mirapex 2014- Yes Oh G See Memor ia 06-01 Sreshta Instructio l 18:08: ns, Oral, [place] 00 As Indicated, first dose 06/01/15 13:08:00 CDT Mirapex 2014- Yes Oh G See Memor ia 06-01 Sreshta Instructio l 18:08: ns, Oral, [place] 00 As Indicated, first dose 06/01/15 13:08:00 CDT Mirapex 2014- Yes Oh G See Memor ia 06-01 Sreshta Instructio l 18:08: ns, Oral, More[place] 00 As Indicated, first dose 06/01/15 13:08:00 CDT Robaxin No Rad 1 gm, IV Mem oria IVPB 7-27 Waqar Piggyback, l 18:00: Once, [place] 00 infuse over 30 minutes, first dose 06/01/15 13:00:00 CDT, stop date 06/01/15 13:00:00 CDT promethazin No Low Pinsky 12.5 mg = Memoria e 7-27 0.5 mL, l 18:00: Injection, [place] 00 IM, Once PRN for severe nausea, first dose 06/01/15 13:00:00 CDT ondansetron No Low Pinsky 4 mg = 2 Memoria 7-27 mL, l 18:00: Injection, Moreno 00 IV Push, q15min PRN for nausea/vom iting, order duration: 2 doses, first dose 06/01/15 13:00:00 CDT, stop date Limited # of times albuterol No Low Pinsky 2.5 mg = 3 Memoria 2.5 mg/3 mL 7-27 mL, Soln, l (0.083%) 18:00: NEB, Once Herm rocio inhalation 00 PRN for solution wheezing, first dose 06/01/15 13:00:00 CDT Demerol HCl No Low Pinsky 12.5 mg = Memoria 7-27 0.25 mL, l 18:00: Injection, [place] 00 IV Push, Once PRN for shivers, first dose 06/01/15 13:00:00 CDT Saline Lock 2014- No Low Pinsky 10 mL, Memoria Flush 7-27 Soln, IV l 18:00: Push, As Indicated PRN for flush, first dose 06/01/15 13:00:00 CDT Dilaudid 2014- No Low Pinsky 0.5 mg = Memoria 7-27 0.25 mL, l 18:00: Injection, IV Push, q10min PRN for pain severe (7-10), first dose 06/01/15 13:00:00 CDT Lactated 2014-0 No Low Pinsky 1,000 mL, Memoria Ringers 7-27 IV, 75 l Injection 18:00: mL/hr, Xander n 1,000 mL 00 start date 06/01/15 13:00:00 CDT Lactated 0 No Rad IV, start emoria Ringers 7-27 Waqar date l Injection 18:00: 06/01/15 Herm 13:00:00 CDT, stop date 06/01/15 13:00:00 CDT Robaxin No Rad 1 gm, IV Mem oria IVPB 7 Waqar Piggyback, l 18:00: Once, infuse over 30 minutes, first dose 06/01/15 13:00:00 CDT, stop date 06/01/15 13:00:00 CDT promethazin No Low Pinsky 12.5 mg = Memoria e 7-27 0.5 mL, l 18:00: Injection, IM, Once PRN for severe nausea, first dose 06/01/15 13:00:00 CDT ondansetron No Low Pinsky 4 mg = 2 Memoria 7-27 mL, l 18:00: Injection, IV Push, q15min PRN for nausea/vom iting, order duration: 2 doses, first dose 06/01/15 13:00:00 CDT, stop date Limited # of times albuterol No Low Pinsky 2.5 mg = 3 Memoria 2.5 mg/3 mL 7-27 mL, Soln, l (0.083%) 18:00: NEB, Once Herm rocio inhalation 00 PRN for solution wheezing, first dose 06/01/15 13:00:00 CDT Demerol HCl No Low Pinsky 12.5 mg = Memoria 7-27 0.25 mL, l 18:00: Injection, Red Jacket IV Push, Once PRN for shivers, first dose 06/01/15 13:00:00 CDT Saline Lock No Low Pinsky 10 mL, Memoria Flush 7-27 Soln, IV l 18:00: Push, As Red Jacket Indicated PRN for flush, first dose 06/01/15 13:00:00 CDT Dilaudid No Low Pinsky 0.5 mg = Memoria 7-27 0.25 mL, l 18:00: Injection, Moreno 00 IV Push, q10min PRN for pain severe (7-10), first dose 06/01/15 13:00:00 CDT Lactated No Low Pinsky 1,000 mL, Memoria Ringers 7-27 IV, 75 l Injection 18:00: mL/hr, Xander n 1,000 mL 00 start date 06/01/15 13:00:00 CDT Lactated No Rad IV, start M emoria Ringers 7-27 Waqar date l Injection 18:00: 06/01/15 Herm rocio 00 13:00:00 CDT, stop date 06/01/15 13:00:00 CDT Robaxin No Rad 1 gm, IV Mem oria IVPB 7-27 Waqar Piggyback, l 18:00: Once, Moreno infuse over 30 minutes, first dose 06/01/15 13:00:00 CDT, stop date 06/01/15 13:00:00 CDT promethazin No Low Pinsky 12.5 mg = Memoria e 7-27 0.5 mL, l 18:00: Injection, Moreno 00 IM, Once PRN for severe nausea, first dose 06/01/15 13:00:00 CDT ondansetron No Low Pinsky 4 mg = 2 Memoria 7-27 mL, l 18:00: Injection, Moreno 00 IV Push, q15min PRN for nausea/vom iting, order duration: 2 doses, first dose 06/01/15 13:00:00 CDT, stop date Limited # of times albuterol No Low Pinsky 2.5 mg = 3 Memoria 2.5 mg/3 mL 7-27 mL, Soln, l (0.083%) 18:00: NEB, Once Herm rocio inhalation 00 PRN for solution wheezing, first dose 06/01/15 13:00:00 CDT Demerol HCl No Olw Pinsky 12.5 mg = Memoria 7-27 0.25 mL, l 18:00: Injection, Moreno IV Push, Once PRN for shivers, first dose 06/01/15 13:00:00 CDT Saline Lock No Low Pinsky 10 mL, Memoria Flush 7-27 Soln, IV l 18:00: Push, As Moreno Indicated PRN for flush, first dose 06/01/15 13:00:00 CDT Dilaudid No Low Pinsky 0.5 mg = Memoria 7-27 0.25 mL, l 18:00: Injection, Red [place] 00 IV Push, q10min PRN for pain severe (7-10), first dose 06/01/15 13:00:00 CDT Lactated 2014-0 No Low Pinsky 1,000 mL, Memoria Ringers 7-27 IV, 75 l Injection 18:00: mL/hr, Xander n 1,000 mL 00 start date 06/01/15 13:00:00 CDT Lactated 2014-0 No Rad IV, start emoria Ringers 7-27 Waqar date l Injection 18:00: 06/01/15 Herm rocio 00 13:00:00 CDT, stop date 06/01/15 13:00:00 CDT ketorolac 2014-0 No Rad 30 mg = 1 Memoria 7-27 Waqar mL, l 17:24: Injection, [place] 00 IV, Once, first dose 06/01/15 12:24:00 CDT, stop date 06/01/15 12:24:00 CDT ketorolac 0 No Rad 30 mg = 1 Memoria 7-27 Waqar mL, l 17:24: Injection, Moreno 00 IV, Once, first dose 06/01/15 12:24:00 CDT, stop date 06/01/15 12:24:00 CDT ketorolac 2014-0 No Rad 30 mg = 1 Memoria 7-27 Waqar mL, l 17:24: Injection, Moreno 00 IV, Once, first dose 06/01/15 12:24:00 CDT, stop date 06/01/15 12:24:00 CDT ondansetron 2014-0 No Rad 4 mg = 2 Memoria 7-27 Waqar mL, l 17:12: Injection, Moreno 00 IV, Once, first dose 06/01/15 12:12:00 CDT, stop date 06/01/15 12:12:00 CDT ondansetron 2014-0 No Rad 4 mg = 2 Memoria 7-27 Waqar mL, l 17:12: Injection, [place] 00 IV, Once, first dose 06/01/15 12:12:00 CDT, stop date 06/01/15 12:12:00 CDT ondansetron 2014-0 No Rad 4 mg = 2 Memoria 7-27 Waqar mL, l 17:12: Injection, Moreno 00 IV, Once, first dose 06/01/15 12:12:00 CDT, stop date 06/01/15 12:12:00 CDT SUFentanil 2014-0 No Rad 50 mcg = 1 Memoria + propofol 7-27 Waqar mL, l 470 mg 16:30: Injection, Blanche nn 51 IV, Once, first dose 06/01/15 11:30:51 CDT, stop date 06/01/15 11:30:51 CDT SUFentanil 2014-0 No Rad 50 mcg = 1 Memoria + propofol 7-27 Waqar mL, l 470 mg 16:30: Injection, Blanche nn 51 IV, Once, first dose 06/01/15 11:30:51 CDT, stop date 06/01/15 11:30:51 CDT SUFentanil 2014-0 No Rad 50 mcg = 1 Memoria + propofol 7-27 Waqar mL, l 470 mg 16:30: Injection, Blanche nn 51 IV, Once, first dose 06/01/15 11:30:51 CDT, stop date 06/01/15 11:30:51 CDT ketamine + 2014-0 No Rad 100 mg = 1 Memoria Sodium 7-27 Waqar mL, l Chloride 16:30: Injection, Her keene 0.9% 9.4 mL 20 IV, Once, first dose 06/01/15 11:30:20 CDT, stop date 06/01/15 11:30:20 CDT ketamine + 2014-0 No Rad 100 mg = 1 Memoria Sodium 7-27 Waqar mL, l Chloride 16:30: Injection, Her keene 0.9% 9.4 mL 20 IV, Once, first dose 06/01/15 11:30:20 CDT, stop date 06/01/15 11:30:20 CDT ketamine + 2014-0 No Rad 100 mg = 1 Memoria Sodium 7-27 Waqar mL, l Chloride 16:30: Injection, Her keene 0.9% 9.4 mL 20 IV, Once, first dose 06/01/15 11:30:20 CDT, stop date 06/01/15 11:30:20 CDT propofol + 2014-0 No Rad 22.09 mL, Memoria propofol 7-27 Waqar IV, start l 220.9 mg 16:30: date Moreno 06/01/15 11:30:15 CDT, stop date 06/01/15 11:30:15 CDT propofol + 2014-0 No Rad 22.09 mL, Memoria propofol 7-27 Waqar IV, start l 220.9 mg 16:30: date Red Jacket 06/01/15 11:30:15 CDT, stop date 06/01/15 11:30:15 CDT propofol + 2014-0 No Rad 22.09 mL, Memoria propofol 7-27 Waqar IV, start l 220.9 mg 16:30: date Moreno 06/01/15 11:30:15 CDT, stop date 06/01/15 11:30:15 CDT SUFentanil 2014- Yes Rad 2,298.6666 Memoria + propofol 7-27 Waqar mcg = l [address].466 16:00: 45.97 mL, Her keene mg 51 Injection, IV, Once, first dose 06/01/15 11:00:51 CDT, stop date 06/01/15 11:00:51 CDT SUFentanil 2015-0 Yes Rad Reed,298.6666 Memoria + propofol 7-27 Waqar mcg = l [address].466 16:00: 45.97 mL, Her keene mg 51 Injection, IV, Once, first dose 06/01/15 11:00:51 CDT, stop date 06/01/15 11:00:51 CDT SUFentanil 2015-0 Yes Rad Reed,298.6666 Memoria + propofol 7-27 Waqar mcg = l [address].466 16:00: 45.97 mL, Her keene mg 51 Injection, IV, Once, first dose 06/01/15 11:00:51 CDT, stop date 06/01/15 11:00:51 CDT ketamine + 2015-0 Yes Rad Reed,298.6666 Memoria Sodium 7-27 Waqar mg = 22.99 l Chloride 16:00: mL, Red Jacket 0.9% 216.07 20 Injection, mL IV, Once, first dose 06/01/15 11:00:20 CDT, stop date 06/01/15 11:00:20 CDT ketamine + 2015-0 Yes Rad 2,298.6666 Memoria Sodium 7-27 Waqar mg = 22.99 l Chloride 16:00: mL, Moreno 0.9% 216.07 20 Injection, mL IV, Once, first dose 06/01/15 11:00:20 CDT, stop date 06/01/15 11:00:20 CDT ketamine + 2015-0 Yes Rad Reed,298.6666 Memoria Sodium 7-27 Waqar mg = 22.99 l Chloride 16:00: mL, Red Jacket 0.9% 216.07 20 Injection, mL IV, Once, first dose 06/01/15 11:00:20 CDT, stop date 06/01/15 11:00:20 CDT propofol + 2015-0 Yes Rad 108.04 mL, Memoria propofol 7-27 Waqar IV, start l 1080.373 mg 16:00: Xander bridges 06/01/15 11:00:15 CDT, stop date 06/01/15 11:00:15 CDT propofol + 2015-0 Yes Rad 108.04 mL, Memoria propofol 7-27 Waqar IV, start l 1080.373 mg 16:00: date Xander n 06/01/15 11:00:15 CDT, stop date 06/01/15 11:00:15 CDT propofol + 2014-0 Yes Rad 108.04 mL, Memoria propofol 06-01 Waqar IV, start l 1080.373 mg 16:00: date Xander n 06/01/15 11:00:15 CDT, stop date 06/01/15 11:00:15 CDT ondansetron 2014-0 No Rad 4 mg = 2 Memoria 06-01 Waqar mL, l 15:17: Injection, Moreno 00 IV, Once, first dose 06/01/15 10:17:00 CDT, stop date 06/01/15 10:17:00 CDT Misc 2014-0 No Rad 1,000 mL, Memor ia Medication 06-01 Waqar Soln-IV, l 15:17: IV, Once, Red Jacket 00 first dose 06/01/15 10:17:00 CDT, stop date 06/01/15 10:17:00 CDT ondansetron 2014-0 No Rad 4 mg = 2 Memoria 06-01 Waqar mL, l 15:17: Injection, Moreno 00 IV, Once, first dose 06/01/15 10:17:00 CDT, stop date 06/01/15 10:17:00 CDT [facility] [place] 2014-0 No Rad 1,000 mL, Memor ia Medication 06-01 Waqar Soln-IV, l 15:17: IV, Once, Moreno 00 first dose 06/01/15 10:17:00 CDT, stop date 06/01/15 10:17:00 CDT ondansetron 2014-0 No Rad 4 mg = 2 Memoria 06-01 Waqar mL, l 15:17: Injection, Moreno 00 IV, Once, first dose 06/01/15 10:17:00 CDT, stop date 06/01/15 10:17:00 CDT Misc 2014-0 No Rad 1,000 mL, Memor ia Medication 06-01 Waqar Soln-IV, l 15:17: IV, Once, Red [place]et 00 first dose 06/01/15 10:17:00 CDT, stop date 06/01/15 10:17:00 CDT acetaminoph 2014-0 No Rad 1,000 mg, Memoria en + Sodium 7-27 Waqar Soln-IV, l Chloride 15:15: IV, Once, Herm rocio 0.9% 100 mL 00 first dose 06/01/15 10:15:00 CDT, stop date 06/01/15 10:15:00 CDT acetaminoph 2014-0 No Rad 1,000 mg, Memoria en + Sodium 7-27 Waqar Soln-IV, l Chloride 15:15: IV, Once, Herm rocio 0.9% 100 mL 00 first dose 06/01/15 10:15:00 CDT, stop date 06/01/15 10:15:00 CDT acetaminoph 2014-0 No Rad 1,000 mg, Memoria en + Sodium 7-27 Waqar Soln-IV, l Chloride 15:15: IV, Once, Herm rocio 0.9% 100 mL 00 first dose 06/01/15 10:15:00 CDT, stop date 06/01/15 10:15:00 CDT ceFAZolin 2014-0 No Rad 2 gm, Cruz pablito 7-27 Waqar Soln-IV, l 14:59: IV Moreno 00 Piggyback, Once, first dose 06/01/15 9:59:00 CDT, stop date 06/01/15 9:59:00 CDT ceFAZolin 2014-0 No Rad 2 gm, Cruz pablito 7-27 Waqar Soln-IV, l 14:59: IV Moreno 00 Piggyback, Once, first dose 06/01/15 9:59:00 CDT, stop date 06/01/15 9:59:00 CDT ceFAZolin 2014-0 No Rad 2 gm, Cruz pablito 7-27 Waqar Soln-IV, l 14:59: IV Red Jacket 00 Piggyback, Once, first dose 06/01/15 9:59:00 CDT, stop date 06/01/15 9:59:00 CDT rocuronium 2014-0 No Rad 20 mg = 2 Memoria 7-27 Waqar mL, l 14:57: Injection, [place] 00 IV, Once, first dose 06/01/15 9:57:00 CDT, stop date 06/01/15 9:57:00 CDT fentaNYL 2014-0 No Rad 50 mcg = 1 Memoria 7-27 Waqar mL, l 14:57: Injection, [place] 00 IV, Once, first dose 06/01/15 9:57:00 CDT, stop date 06/01/15 9:57:00 CDT rocuronium 2015-0 No Rad 20 mg = 2 Memoria 7-27 Waqar mL, l 14:57: Injection, [place] 00 IV, Once, first dose 06/01/15 9:57:00 CDT, stop date 06/01/15 9:57:00 CDT fentaNYL 2014-0 No Rad 50 mcg = 1 Memoria 7-27 Waqar mL, l 14:57: Injection, Red [place] 00 IV, Once, first dose 06/01/15 9:57:00 CDT, stop date 06/01/15 9:57:00 CDT rocuronium 2015-0 No Rad 20 mg = 2 Memoria 7-27 Waqar mL, l 14:57: Injection, Moreno 00 IV, Once, first dose 06/01/15 9:57:00 CDT, stop date 06/01/15 9:57:00 CDT fentaNYL 2014-0 No Rad 50 mcg = 1 Memoria 7-27 Waqar mL, l 14:57: Injection, Moreno 00 IV, Once, first dose 06/01/15 9:57:00 CDT, stop date 06/01/15 9:57:00 CDT dexamethaso 2014-0 No Rad 8 mg = 2 Memoria ne 7-27 Waqar mL, l 14:54: Injection, Moreno 00 IV, Once, first dose 06/01/15 9:54:00 CDT, stop date 06/01/15 9:54:00 CDT dexamethaso 2014-0 No Rad 8 mg = 2 Memoria ne 7-27 Waqar mL, l 14:54: Injection, [place] 00 IV, Once, first dose 06/01/15 9:54:00 CDT, stop date 06/01/15 9:54:00 CDT dexamethaso 2014-0 No Rad 8 mg = 2 Memoria ne 7-27 Waqar mL, l 14:54: Injection, [place] 00 IV, Once, first dose 06/01/15 9:54:00 CDT, stop date 06/01/15 9:54:00 CDT lidocaine 2014-0 No Rad 4 mL, Cruz pablito 7-27 Waqar Injection, l 14:49: IV, Once, Moreno 00 first dose 06/01/15 9:49:00 CDT, stop date 06/01/15 9:49:00 CDT propofol 2014-0 No Rad 120 mg = Me moria 7-27 Waqar 12 mL, l 14:49: Emulsion, Red Jacket 00 IV, Once, first dose 06/01/15 9:49:00 CDT, stop date 06/01/15 9:49:00 CDT succinylcho 2014-0 No Rad 70 mg = Memoria line 7-27 Waqar 3.5 mL, l 14:49: Injection, Red Jack[place] 00 IV, Once, first dose 06/01/15 9:49:00 CDT, stop date 06/01/15 9:49:00 CDT lidocaine 2014-0 No Rad 4 mL, Cruz pablito 7-27 Waqar Injection, l 14:49: IV, Once, first dose 06/01/15 9:49:00 CDT, stop date 06/01/15 9:49:00 CDT propofol 2014-0 No Rad 120 mg = Me moria 7-27 Waqar 12 mL, l 14:49: Emulsion, Moreno 00 IV, Once, first dose 06/01/15 9:49:00 CDT, stop date 06/01/15 9:49:00 CDT succinylcho 2014-0 No Rad 70 mg = Memoria line 7-27 Waqar 3.5 mL, l 14:49: Injection, Moreno 00 IV, Once, first dose 06/01/15 9:49:00 CDT, stop date 06/01/15 9:49:00 CDT lidocaine 2014-0 No Rad 4 mL, Cruz pablito 7-27 Waqar Injection, l 14:49: IV, Once, Moreno 00 first dose 06/01/15 9:49:00 CDT, stop date 06/01/15 9:49:00 CDT propofol 2014-0 No Rad 120 mg = Me moria 7-27 Waqar 12 mL, l 14:49: Emulsion, Moreno 00 IV, Once, first dose 06/01/15 9:49:00 CDT, stop date 06/01/15 9:49:00 CDT succinylcho 2014-0 No Rad 70 mg = Memoria line 7-27 Waqar 3.5 mL, l 14:49: Injection, Moreno 00 IV, Once, first dose 06/01/15 9:49:00 CDT, stop date 06/01/15 9:49:00 CDT famotidine 2014-0 No Rad 20 mg, Me moria 7-27 Waqar Injection, l 14:46: IV, Once, [place] 00 first dose 06/01/15 9:46:00 CDT, stop date 06/01/15 9:46:00 CDT metoclopram 2014-0 No Rad 10 mg = 2 Memoria elodia 7-27 Waqar mL, l 14:46: Injection, Moreno 00 IV, Once, first dose 06/01/15 9:46:00 CDT, stop date 06/01/15 9:46:00 CDT famotidine 2014-0 No Rad 20 mg, Me moria 7-27 Waqar Injection, l 14:46: IV, Once, [place] 00 first dose 06/01/15 9:46:00 CDT, stop date 06/01/15 9:46:00 CDT metoclopram 2014-0 No Rad 10 mg = 2 Memoria elodia 7-27 Waqar mL, l 14:46: Injection, Moreno 00 IV, Once, first dose 06/01/15 9:46:00 CDT, stop date 06/01/15 9:46:00 CDT famotidine 2014-0 No Rad 20 mg, Me moria 7-27 Waqar Injection, l 14:46: IV, Once, Moreno 00 first dose 06/01/15 9:46:00 CDT, stop date 06/01/15 9:46:00 CDT metoclopram 2014-0 No Rad 10 mg = 2 Memoria elodia 7-27 Waqar mL, l 14:46: Injection, Moreno 00 IV, Once, first dose 06/01/15 9:46:00 CDT, stop date 06/01/15 9:46:00 CDT diphenhydrA 2014-0 No Rad 10 mg = Memoria MINE 06-01 Waqar 0.2 mL, l 14:45: Injection, Red Jack[place] 00 IV, Once, first dose 06/01/15 9:45:00 CDT, stop date 06/01/15 9:45:00 CDT diphenhydrA 0 No Rad 10 mg = Memoria MINE 06-01 Waqar 0.2 mL, l 14:45: Injection, Moreno 00 IV, Once, first dose 06/01/15 9:45:00 CDT, stop date 06/01/15 9:45:00 CDT diphenhydrA No Rad 10 mg = Memoria MINE 06-01 Waqar 0.2 mL, l 14:45: Injection, Moreno 00 IV, Once, first dose 06/01/15 9:45:00 CDT, stop date 06/01/15 9:45:00 CDT fentaNYL 2014- No Rad 100 mcg = Cristina tatumria 06-01 Waqar 2 mL, l 14:40: Injection, Red Jacket 00 IV, Once, first dose 06/01/15 9:40:00 CDT, stop date 06/01/15 9:40:00 CDT midazolam 2014-0 No Rad 2 mg = 2 M deeptiria 06-01 Waqar mL, l 14:40: Injection, Moreno 00 IV, Once, first dose 06/01/15 9:40:00 CDT, stop date 06/01/15 9:40:00 CDT fentaNYL No Rad 100 mcg = Cristina tatumria 06-01 Waqar 2 mL, l 14:40: Injection, Moreno 00 IV, Once, first dose 06/01/15 9:40:00 CDT, stop date 06/01/15 9:40:00 CDT midazolam 2014-0 No Rad 2 mg = 2 M emoria 7 Waqar mL, l 14:40: Injection, Red Jacket 00 IV, Once, first dose 06/01/15 9:40:00 CDT, stop date 06/01/15 9:40:00 CDT fentaNYL 2014-0 No Rad 100 mcg = M deeptiria 7 Waqar 2 mL, l 14:40: Injection, Moreno 00 IV, Once, first dose 06/01/15 9:40:00 CDT, stop date 06/01/15 9:40:00 CDT midazolam 2015-0 No Rad 2 mg = 2 M emoria 06-01 Waqar mL, l 14:40: Injection, IV, Once, first dose 06/01/15 9:40:00 CDT, stop date 06/01/15 9:40:00 CDT scopolamine 2014-0 No Rad 1 patches, Memoria 06-01 Waqar Film-ER, l 14:27: IV, Once, first dose 06/01/15 9:27:00 CDT, stop date 06/01/15 9:27:00 CDT scopolamine 2014-0 No Rad 1 patches, Memoria 06-01 Waqar Film-ER, l 14:27: IV, Once, first dose 06/01/15 9:27:00 CDT, stop date 06/01/15 9:27:00 CDT scopolamine 2014-0 No Rad 1 patches, Memoria 06-01 Waqar Film-ER, l 14:27: IV, Once, first dose 06/01/15 9:27:00 CDT, stop date 06/01/15 9:27:00 CDT Neurontin 2014-0 No Mohammad 600 mg = 2 Memoria 06-01 Etminan caps, Cap, l 14:00: Oral, Once, first dose 06/01/15 9:00:00 CDT, stop date 06/01/15 9:00:00 CDT ceFAZolin 2014-0 No Mohammad 2 gm, Mem oria 06-01 Etminan Soln-IV, l 14:00: IV Piggyback, Once, infuse over 30 minutes, first dose 06/01/15 9:00:00 CDT, stop date 06/01/15 9:00:00 CDT Neurontin 2014-0 No Mohammad 600 mg = 2 Memoria 06-01 Etminan caps, Cap, l 14:00: Oral, Once, first dose 06/01/15 9:00:00 CDT, stop date 06/01/15 9:00:00 CDT ceFAZolin No Mohammad 2 gm, Mem oria 06-01 Etminan Soln-IV, l 14:00: IV Moreno 00 Piggyback, Once, infuse over 30 minutes, first dose 06/01/15 9:00:00 CDT, stop date 06/01/15 9:00:00 CDT Neurontin No Mohammad 600 mg = 2 Memoria 06-01 Etminan caps, Cap, l 14:00: Oral, Once, first dose 06/01/15 9:00:00 CDT, stop date 06/01/15 9:00:00 CDT ceFAZolin No Mohammad 2 gm, Mem oria 06-01 Etminan Soln-IV, l 14:00: IV Piggyback, Once, infuse over 30 minutes, first dose 06/01/15 9:00:00 CDT, stop date 06/01/15 9:00:00 CDT Lidocaine No Herman K 0.2 mL, Mem oria 2% 0.2 mL - Lewis Injection, l IV Start 13:21: Subcutaneo Her keene [[facility]] 00 us, Once PRN for other (see comment), first dose 06/01/15 8:21:00 CDT LR 1,000 mL No Herman K 1,000 mL, Memoria 06-01 Lewis IV, 30 l 13:21: mL/hr, start date 06/01/15 8:21:00 CDT OxyCONTin No Mohammad 20 mg = 2 Memoria 06-01 Etminan tabs, l 13:21: Tab-ER, Red Jacket 00 Oral, Pre Op, first dose 06/01/15 8:21:00 CDT Lidocaine No Herman K 0.2 mL, Mem oria 2% 0.2 mL - Lewis Injection, l IV Start 13:21: Subcutaneo Her keene [[place]] 00 us, Once PRN for other (see comment), first dose 06/01/15 8:21:00 CDT LR 1,000 mL No Herman K 1,000 mL, Memoria 7-27 Lewis IV, 30 l 13:21: mL/hr, start date 06/01/15 8:21:00 CDT OxyCONTin No Mohammad 20 mg = 2 Memoria 06-01 Etminan tabs, l 13:21: Tab-ER, Moreno 00 Oral, Pre Op, first dose 06/01/15 8:21:00 CDT Lidocaine No Herman K 0.2 mL, Mem oria 2% 0.2 mL 06-01 Lewis Injection, l IV Start 13:21: Subcutaneo Her keene [[facility]] 00 us, Once PRN for other (see comment), first dose 06/01/15 8:21:00 CDT LR 1,000 mL No Herman K 1,000 mL, Memoria 06-01 Lewis IV, 30 l 13:21: mL/hr, start date 06/01/15 8:21:00 CDT OxyCONTin No Mohammad 20 mg = 2 Memoria 06-01 Etminan tabs, l 13:21: Tab-ER, 00 Oral, Pre Op, first dose 06/01/15 8:21:00 CDT tramadol 50 No 100 mg = 2 Memoria mg oral 7-22 tabs, l tablet 19:47: Oral, Moreno 00 q12hr, PRN for pain, # 60 tabs, 0 Refill(s), BACK PAIN tramadol 50 No 100 mg = 2 Memoria mg oral 7-22 tabs, l tablet 19:47: Oral, [place] 00 q12hr, PRN for pain, # 60 tabs, 0 Refill(s), BACK PAIN tramadol 50 No 100 mg = 2 Memoria mg oral 7-22 tabs, l tablet 19:47: Oral, [place] 00 q12hr, PRN for pain, # 60 tabs, 0 Refill(s), BACK PAIN Misc No Harmeet 700 mL, Memoria Medication 05-20 Silke Soln-IV, l 17:41: IV, Once, first dose 05/20/15 12:41:00 CDT, stop date 05/20/15 12:41:00 CDT Misc No Harmeet 700 mL, Memoria Medication 7-15 Silke Soln-IV, l 17:41: IV, Once, first dose 05/20/15 12:41:00 CDT, stop date 05/20/15 12:41:00 CDT [facility] No Harmeet 700 mL, Memoria Medication 7-15 Silke Soln-IV, l 17:41: IV, Once, first dose 05/20/15 12:41:00 CDT, stop date 05/20/15 12:41:00 CDT LR 1,000 mL No Harmeet 1,000 mL, Memoria 7-15 Silke IV, 75 l 17:16: mL/hr, start date 05/20/15 12:16:00 CDT Saline Lock No Harmeet 10 mL, M emoria Flush 7-15 Silke Soln, IV l 17:16: Push, As Indicated PRN for flush, first dose 05/20/15 12:16:00 CDT ondansetron No Harmeet 4 mg = 2 Memoria 7-15 Silke mL, l 17:16: Injection, IV Push, q15min PRN for nausea/vom iting, order duration: 2 doses, first dose 05/20/15 12:16:00 CDT, stop date Limited # of times Dilaudid No Harmeet 0.5 mg = Me moria 7-15 Silke 0.25 mL, l 17:16: Injection, IV Push, q10min PRN for pain severe (7-10), first dose 05/20/15 12:16:00 CDT LR 1,000 mL No Harmeet 1,000 mL, Memoria 7-15 Silke IV, 75 l 17:16: mL/hr, start date 05/20/15 12:16:00 CDT Saline Lock No Harmeet 10 mL, M emoria Flush 7-15 Silke Soln, IV l 17:16: Push, As Indicated PRN for flush, first dose 05/20/15 12:16:00 CDT ondansetron No Harmeet 4 mg = 2 Memoria 7-15 Silke mL, l 17:16: Injection, Red Jacket 00 IV Push, q15min PRN for nausea/vom iting, order duration: 2 doses, first dose 05/20/15 12:16:00 CDT, stop date Limited # of times Dilaudid No Harmeet 0.5 mg = moria 7-15 Silke 0.25 mL, l 17:16: Injection, Moreno 00 IV Push, q10min PRN for pain severe (7-10), first dose 05/20/15 12:16:00 CDT LR 1,000 mL No Harmeet 1,000 mL, Memoria 7-15 Silke IV, 75 l 17:16: mL/hr, Moreno 00 start date 05/20/15 12:16:00 CDT Saline Lock No Harmeet 10 mL, Cristina delacruz Flush 7-15 Silke Soln, IV l 17:16: Push, As Red Jacket 00 Indicated PRN for flush, first dose 05/20/15 12:16:00 CDT ondansetron No Harmeet 4 mg = 2 Memoria 7-15 Silke mL, l 17:16: Injection, Moreno 00 IV Push, q15min PRN for nausea/vom iting, order duration: 2 doses, first dose 05/20/15 12:16:00 CDT, stop date Limited # of times Dilaudid No Harmeet 0.5 mg = moria 7-15 Silke 0.25 mL, l 17:16: Injection, Red Jacket 00 IV Push, q10min PRN for pain severe (7-10), first dose 05/20/15 12:16:00 CDT fentaNYL No Harmeet 25 mcg = moria 7-15 Silke 0.5 mL, l 17:08: Injection, Moreno 00 IV, Once, first dose 05/20/15 12:08:00 CDT, stop date 05/20/15 12:08:00 CDT fentaNYL No Harmeet 25 mcg = Me moria 7-15 Silke 0.5 mL, l 17:08: Injection, Moreno 00 IV, Once, first dose 05/20/15 12:08:00 CDT, stop date 05/20/15 12:08:00 CDT fentaNYL 2015-0 No Harmeet 25 mcg = Me moria 7-15 Silke 0.5 mL, l 17:08: Injection, Red Jacket 00 IV, Once, first dose 05/20/15 12:08:00 CDT, stop date 05/20/15 12:08:00 CDT fentaNYL 2014-0 No Harmeet 50 mcg = 1 Memoria 7-15 Silke mL, l 17:03: Injection, Moreno 00 IV, Once, first dose 05/20/15 12:03:00 CDT, stop date 05/20/15 12:03:00 CDT fentaNYL 2014-0 No Harmeet 50 mcg = 1 Memoria 7-15 Silke mL, l 17:03: Injection, Moreno 00 IV, Once, first dose 05/20/15 12:03:00 CDT, stop date 05/20/15 12:03:00 CDT fentaNYL 2014-0 No Harmeet 50 mcg = 1 Memoria 7-15 Silke mL, l 17:03: Injection, Moreno 00 IV, Once, first dose 05/20/15 12:03:00 CDT, stop date 05/20/15 12:03:00 CDT ceFAZolin 2014-0 No Harmeet 2 gm, Cruz pablito 7-15 Silke Soln-IV, l 16:49: IV, Once, first dose 05/20/15 11:49:00 CDT, stop date 05/20/15 11:49:00 CDT ceFAZolin 2014-0 No Harmeet 2 gm, Cruz pablito 7-15 Silke Soln-IV, l 16:49: IV, Once, first dose 05/20/15 11:49:00 CDT, stop date 05/20/15 11:49:00 CDT ceFAZolin 2014-0 No Harmeet 2 gm, Cruz pablito 7-15 Silke Soln-IV, l 16:49: IV, Once, first dose 05/20/15 11:49:00 CDT, stop date 05/20/15 11:49:00 CDT midazolam 2014-0 No Harmeet 0.5 mg = Cristina emoria 7-15 Silke 0.5 mL, l 16:48: Injection, Red Jacket 00 IV, Once, first dose 05/20/15 11:48:00 CDT, stop date 05/20/15 11:48:00 CDT midazolam 2014-0 No Harmeet 0.5 mg = M deeptiria 7-15 Silke 0.5 mL, l 16:48: Injection, Moreno 00 IV, Once, first dose 05/20/15 11:48:00 CDT, stop date 05/20/15 11:48:00 CDT midazolam 2014-0 No Harmeet 0.5 mg = M deeptiria 7-15 Silke 0.5 mL, l 16:48: Injection, Moreno 00 IV, Once, first dose 05/20/15 11:48:00 CDT, stop date 05/20/15 11:48:00 CDT midazolam 2014- No Harmeet 1 mg = 1 M deeptiria 7-15 Silke mL, l 16:30: Injection, Red Jacket 00 IV, Once, first dose 05/20/15 11:30:00 CDT, stop date 05/20/15 11:30:00 CDT midazolam 2014- No Harmeet 1 mg = 1 M deeptiria 7-15 Silke mL, l 16:30: Injection, Red Jacket 00 IV, Once, first dose 05/20/15 11:30:00 CDT, stop date 05/20/15 11:30:00 CDT midazolam 2014- No Harmeet 1 mg = 1 M deeptiria 7-15 Silke mL, l 16:30: Injection, Moreno 00 IV, Once, first dose 05/20/15 11:30:00 CDT, stop date 05/20/15 11:30:00 CDT midazolam 2014- No Harmeet 1 mg = 1 M deeptiria 7-15 Silke mL, l 16:26: Injection, Red Jacket 00 IV, Once, first dose 05/20/15 11:26:00 CDT, stop date 05/20/15 11:26:00 CDT midazolam 2014- No Harmeet 1 mg = 1 M deeptiria 7-15 Silke mL, l 16:26: Injection, Red Jacket 00 IV, Once, first dose 05/20/15 11:26:00 CDT, stop date 05/20/15 11:26:00 CDT midazolam 2014- No Harmeet 1 mg = 1 M deeptiria 7-15 Silke mL, l 16:26: Injection, Moreno 00 IV, Once, first dose 05/20/15 11:26:00 CDT, stop date 05/20/15 11:26:00 CDT ceFAZolin 2014-0 No Mohammad 2 gm, Mem oria 7-15 Etminan Soln-IV, l 15:00: IV Moreno 00 Piggyback, Once, infuse over 30 minutes, first dose 05/20/15 10:00:00 CDT, stop date 05/20/15 10:00:00 CDT ceFAZolin 2014-0 No Mohammad 2 gm, Mem oria 7-15 Etminan Soln-IV, l 15:00: IV Red Jacket 00 Piggyback, Once, infuse over 30 minutes, first dose 05/20/15 10:00:00 CDT, stop date 05/20/15 10:00:00 CDT ceFAZolin 2014-0 No Mohammad 2 gm, Mem oria 7-15 Etminan Soln-IV, l 15:00: IV Red Jacket 00 Piggyback, Once, infuse over 30 minutes, first dose 05/20/15 10:00:00 CDT, stop date 05/20/15 10:00:00 CDT Lidocaine 2014-0 No Herman K 0.2 mL, Mem oria 2% 0.2 mL 7-15 Lewis Injection, l IV Start 14:50: Subcutaneo [facility] keeen [[facility]] 00 us, Once PRN for other (see comment), first dose 05/20/15 9:50:00 CDT LR 1,000 mL No Herman K 1,000 mL, Memoria 7-15 Lewis IV, 30 l 14:50: mL/hr, [place] start date 05/20/15 9:50:00 CDT Lidocaine 0 No Herman K 0.2 mL, Mem oria 2% 0.2 mL 7-15 Lewis Injection, l IV Start 14:50: Subcutaneo Her keene [[place]] 00 us, Once PRN for other (see comment), first dose 05/20/15 9:50:00 CDT LR 1,000 mL 0 No Herman K 1,000 mL, Memoria 7-15 Lewis IV, 30 l 14:50: mL/hr, [place] start date 05/20/15 9:50:00 CDT Lidocaine No Herman K 0.2 mL, Mem oria 2% 0.2 mL 05-20 Lewis Injection, l IV Start 14:50: Subcutaneo Her keene [[facility]] 00 us, Once PRN for other (see comment), first dose 05/20/15 9:50:00 CDT LR 1,000 mL No Herman K 1,000 mL, Memoria 05-20 Lewis IV, 30 l 14:50: mL/hr, [place] 00 start date 05/20/15 9:50:00 CDT Mirapex Yes See Memoria 05-18 Instructio l 14:01: ns, Oral, [place] 00 unknown dose Oral Qday, 0 Refill(s), RLLunknown dose Oral Qday Mirapex Yes See Memoria 05-18 Instructio l 14:01: ns, Oral, [place] 00 unknown dose Oral Qday, 0 Refill(s), RLLunknown dose Oral Qday Mirapex Yes See Memoria 05-18 Instructio l 14:01: ns, Oral, [place] 00 unknown dose Oral Qday, 0 Refill(s), RLLunknown dose Oral Qday Lo Loestrin Yes 1 tabs, Mem oria Fe 1 mg-10 7-13 Oral, l mcg oral 13:59: Daily, 0 Blanche nn tablet 00 Refill(s), control [facility] Yes 10 mg = 1 Mem oria mg oral 7-13 tabs, l tablet 13:59: Oral, [place] 00 Daily, 0 Refill(s), allergy Lo Loestrin Yes 1 tabs, Mem oria Fe 1 mg-10 7-13 Oral, l mcg oral 13:59: Daily, 0 Blanche nn tablet 00 Refill(s), control Zyrtec Yes 10 mg = 1 Mem oria mg oral 7-13 tabs, l tablet 13:59: Oral, [place] 00 Daily, 0 Refill(s), allergy Lo Loestrin Yes 1 tabs, Mem oria Fe 1 mg-10 7-13 Oral, l mcg oral 13:59: Daily, 0 Blanche nn tablet 00 Refill(s), control Zyrtec 10 2014- Yes 10 mg = 1 Mem oria mg oral 7-13 tabs, l tablet 13:59: Oral, [place] 00 Daily, 0 Refill(s), allergy NexIUM OTC Yes 40 mg, Memor ia 7-13 Oral, l 13:58: Daily, 0 [place] 00 Refill(s), GERD NexIUM OTC Yes 40 mg, Memor ia 7-13 Oral, l 13:58: Daily, 0 [place] 00 Refill(s), GERD NexIUM OTC Yes 40 mg, Memor ia 7-13 Oral, l 13:58: Daily, 0 [place] 00 Refill(s), GERD Immunizations Ordered Immunization Filled Immunization Date Status Commen ts Source Name Name Tdap Unknown Completed [facility] Tdap Unknown Completed [facility] Influenza (IM) Unknown Completed [facility] Preservative [facility] Influenza, Unknown Completed [facility] Influenza, Unknown Completed [facility] Pneumococcal Unknown Completed [place] [facility] Conjugate [facility] Vital Signs Vital Name Observation Time Observation Value Comments Source Systolic blood 2021-06-18 18:46:00 118 mm[facility]Hg[facility] Diastolic blood 2021-06-18 18:46:00 78 mm[Hg] [facility] Heart rate 2021-06-18 18:46:00 80 [facility]min [facility] Body temperature 2021-06-18 18:46:00 36.22 [facility] Systolic blood 2021-05-25 18:50:00 125 mm[Hg] [facility] Diastolic blood 2021-05-25 18:50:00 82 mm[Hg] [facility] Heart rate 2021-05-25 18:50:00 89 [facility] temperature 2021-05-25 18:50:00 36.17 [facility] WEIGHT 2020-05-01 00:00:00 73.9 kg Body weight 2022-10-13 14:50:00 71.7 kg [facility] BMI 2022-10-13 14:50:00 28.01 kg/m2 [facility] Systolic blood 2022-10-13 14:49:03 129 mm[Hg] [facility] [place] [facility] Diastolic blood 2022-10-13 14:49:03 89 mm[Hg] [facility] [place] [facility] Heart rate 2022-10-13 14:49:03 82 /min [facility] Body temperature 2022-10-13 14:49:03 36.39 Alda [facility] Respiratory rate 2022-10-13 14:49:03 18 /min [facility] Body height 2021-03-05 16:14:00 62 [in_us] [facility] Weight 2021-03-05 16:14:00 165 [lb_av] [facility] Body mass index 2021-03-05 16:14:00 30.18 kg/m2 [facility] (BMI) [Ratio] Systolic blood 2021-02-19 15:00:00 110 mm[Hg] [facility] pressure Diastolic blood 2021-02-19 15:00:00 78 mm[Hg] [facility] pressure Body height 2021-02-19 15:00:00 62 [in_us] [facility] Weight 2021-02-19 15:00:00 165 [lb_av] [facility] Body mass index 2021-02-19 15:00:00 30.18 kg/m2 [facility] (BMI) [Ratio] Heart Rate 2021-02-19 15:00:00 86 /min [facility] Systolic blood 2021-02-09 15:46:00 126 mm[Hg] [facility] pressure Diastolic blood 2021-02-09 15:46:00 78 mm[Hg] [facility] pressure Body height 2021-02-09 15:46:00 62 [in_us] [facility] Weight 2021-02-09 15:46:00 165 [lb_av] [facility] Body mass index 2021-02-09 15:46:00 30.18 kg/m2 [facility] (BMI) [Ratio] Heart Rate 2021-02-09 15:46:00 97 /min [facility] Diastolic blood 2021-01-12 15:51:00 79 mm[Hg] [facility] pressure Body height 2021-01-12 15:51:00 62 [in_us] [facility] Weight 2021-01-12 15:51:00 165 [lb_av] [facility] Body mass index 2021-01-12 15:51:00 30.18 kg/m2 [facility] (BMI) [Ratio] Heart Rate 2021-01-12 15:51:00 77 /min [facility] Body temperature 2021-01-12 15:51:00 97.7 [degF] [facility] Systolic blood 2021-01-12 15:51:00 127 mm[Hg] [facility] pressure Systolic blood 2020-11-10 14:16:00 122 mm[Hg] [facility] pressure Diastolic blood 2020-11-10 14:16:00 80 mm[Hg] [facility] pressure Body height 2020-11-10 14:16:00 62 [in_us] [facility] Weight 2020-11-10 14:16:00 165 [lb_av] [facility] Body mass index 2020-11-10 14:16:00 30.18 kg/m2 [facility] (BMI) [Ratio] Heart Rate 2020-11-10 14:16:00 81 /min [facility] Body temperature 2020-11-10 14:16:00 97.1 [degF] [facility] Respitory Rate 2015-10-28 15:15:00 Memori al [place] Systolic (mm Hg) 2015-10-28 15:15:00 Cruz rial [place] Respitory Rate 2015-10-28 14:50:00 Memori al [place] Systolic (mm Hg) 2015-10-28 14:50:00 Cruz [facility] [place] Heart Rate 2015-10-28 14:50:00 [facility] [place] Heart Rate 2015-10-28 14:40:00 [facility] [place] Respitory Rate 2015-10-28 14:40:00 Memori al [place] Systolic (mm Hg) 2015-10-28 14:40:00 Cruz rial [place] Temperature Oral (F) 2015-10-28 14:30:00 37.4 Alda [facility] [place] Heart Rate 2015-10-28 14:30:00 [facility] [place] Weight 2015-10-28 11:59:00 [facility] [place] Height 2015-10-28 11:59:00 161 cm [facility] [place] Temperature Oral (F) 2015-10-28 11:59:00 36.9 Alda [facility] [place] Weight 2015-10-22 16:17:00 [facility] [place] Height 2015-10-22 16:17:00 160.02 cm [facility] [place] Systolic (mm Hg) 2015-06-03 13:00:00 Cruz rial [place] Respitory Rate 2015-06-03 13:00:00 Memori al [place] Heart Rate 2015-06-03 13:00:00 [facility] [place] Temperature Oral (F) 2015-06-03 13:00:00 37.2 Alda [facility] [place] Systolic (mm Hg) 2015-06-03 09:00:00 Cruz rial [place] Respitory Rate 2015-06-03 09:00:00 Memori al [place] Heart Rate 2015-06-03 09:00:00 [facility] [place] Temperature Oral (F) 2015-06-03 09:00:00 37.1 Alda [facility] [place] Systolic (mm Hg) 2015-06-03 05:00:00 Cruz rial [place] Heart Rate 2015-06-03 05:00:00 [facility] [place] Respitory Rate 2015-06-03 05:00:00 Memori al [place] Temperature Oral (F) 2015-06-03 05:00:00 37.2 Alda [facility] [place] Temperature Oral (F) 2015-06-01 17:50:00 36.8 Alda [facility] [place] Weight 2015-06-01 13:34:00 [facility] [place] Height 2015-06-01 13:34:00 160.02 cm [facility] [place] Height 2015-05-27 19:39:00 161 cm [facility] [place] Weight 2015-05-27 19:39:00 [facility] [place] Respitory Rate 2015-05-20 17:56:00 Memori al [place] Respitory Rate 2015-05-20 17:40:00 Memori al [place] Heart Rate 2015-05-20 17:40:00 [facility] [place] Systolic (mm Hg) 2015-05-20 17:40:00 Cruz rial [place] Respitory Rate 2015-05-20 17:30:00 Edwardoori al [place] Systolic (mm Hg) 2015-05-20 17:30:00 Cruz rial [place] Heart Rate 2015-05-20 17:30:00 [facility] [place] Systolic (mm Hg) 2015-05-20 17:20:00 Cruz rial [place] Heart Rate 2015-05-20 17:20:00 [facility] [place] Temperature Oral (F) 2015-05-20 17:00:00 36.4 Alda [facility] [place] Temperature Oral (F) 2015-05-20 14:45:00 36.6 Alda [facility] [place] Weight 2015-05-20 14:45:00 [facility] [place] Height 2015-05-20 14:45:00 161 cm [facility] [place] Height 2015-05-18 13:48:00 160.02 cm [facility] [place] Weight 2015-05-18 13:48:00 [facility] [place] Procedures Procedure Date / Time Performing Clinician Source Performed MAMMO DIGITAL DIAGNOSTIC 2022-10-13 13:51:00 Damaris Pruitt [facility] BILATERAL W SANDRA DIAZ [facility] FLUOROSCOPIC GUIDANCE AND 2015-10-28 14:27:00 Hay Keating LOCALIZATION OF NEEDLE OR CATHETER TIP 39187 (Other)<sup>1</sup> INJ.OF DIAG./THERAPEUTIC 2015-10-28 14:27:00 Hay Keating [facility] [place] SUBSTANCE EPIDURAL OR SUBARACHNOID LUMBAR/SACRAL 52122 (Other)<sup>2</sup> APPLICATION INTERVERTERAL 2015-06-01 14:58:00 Hay Keating DEVICE 53502 (Other)<sup>1</sup> ARTHRODESIS ANTERIOR 2015-06-01 14:58:00 Hay Keating [facility] [place] INTERBODY/INCL MIN. DISCECTOMY ; EA ADDTL INTERSPACE 48210 (Other)<sup>2</sup> ARTHRODESIS ANTERIOR 2015-06-01 14:58:00 Hay Keating [facility] [place] INTERBODY/INCL MIN. DISCECTOMY ; LUMBAR 55247 (Other)<sup>3</sup> ARTHRODESIS POSTERIOR 2015-06-01 14:58:00 Hay Keating POSTEROLATERAL TECH EA ADD VERT 10279 (Other)<sup>4</sup> FUSION SPINE LUMBAR 2015-06-01 14:58:00 Hay Keating POSTERIOR 58823 (Other)<sup>5</sup> LAMINECTOMY FACETECTOMY 2015-06-01 14:58:00 Hay Keatingal [place] AND FORAMINOTOMY SINGLE VERTEBRAL SEGMENT;LUMBAR 31466 (Other)<sup>6</sup> LAMINECTOMY/FACETECTOMY 2015-06-01 14:58:00 Hay Keatingal [place] AND FORAMINOTOMY UNI OR BI W/DEC SPINE 03762 (Other)<sup>7</sup> POSTERIOR SEGMENTAL 2015-06-01 14:58:00 Hay Keating INSTRUMENTATION 38004 (Other)<sup>8</sup> Bone graft of other bone, 2015-06-01 05:00:00 Me morial [place] except facial bones Excision of intervertebral 2015-06-01 05:00:00 M [facility] [place] disc Excision of other bone for 2015-06-01 05:00:00 M [facility] [place] graft, except facial bones Fusion or refusion of 2-3 2015-06-01 05:00:00 Me frida Mayer vertebrae INSERTION OF INTERBODY 2015-06-01 05:00:00 Crow iagary Mayer SPINAL FUSION DEVICE Intra-operative 2015-06-01 05:00:00 [facility] neurophysiologic monitoring Lumbar and Lumbosacral 2015-06-01 05:00:00 [facility] [place] Fusion of the Anterior Column, Anterior Technique Lumbar and Lumbosacral 2015-06-01 05:00:00 [facility] [place] Fusion of the Posterior Column, Posterior Technique Other exploration and 2015-06-01 05:00:00 Karsten Polanco decompression of spinal canal Radiologic examination, 2015-06-01 05:00:00 Cruz Mayer chest, 2 views, frontal and lateral; Routine chest x-ray, 2015-06-01 05:00:00 Cruz Mayer described INJECTION PROCEDURE FOR 2015-05-20 16:51:00 Hay Keating morial [place] DISCOGRAPHY;LUMBAR 51237 (Other)<sup>2</sup> PASCUAL: lumbar 2013-11-06 00:00:00 [facility] Her keene lumbar nerve block 2013-11-06 00:00:00 [facility] carpal tunnel bilateral 2003-11-06 00:00:00 Cruz Mayer D AND C 1994-11-06 00:00:00 [facility] Her keene WISDOM TEETH [facility] Plan of Care Planned Activity Planned Date Details Comments Source Future Scheduled 2023-10-03 COVID-19 Vaccination Uni [facility] Test 10:39:15 (#1) [code = COVID-19 [facility] Vaccination (#1)] Center Encounters Start End Encounter Admission Attending Care Care Encounter Source Date/Time Date/Time Type Type Clinicians Facility Department ID 2022-07-01 Outpatient SYSTEM, DONYA NAQVI [id number] 12:43:15 [facility]ER [facility] 2022-05-23 Outpatient SYSTEM, DONYA NAQVI [id number] 13:26:55 PROVIDER [facility] 2021-06-18 Outpatient MENDOZAGUILLE [facility] [id number] [place] 15:36:24 Health 2023-07-21 2023-07-21 Outpatient GC_GCBZW_Ka PRIV PRIV [id number] [facility] 00:00:00 00:00:00 diyala_S [id number] Medic al 2023-07-21 2023-07-21 Outpatient GC_GCBZW_Ka PRIV PRIV [id number] [facility] 00:00:00 00:00:00 diyala_S [id number] Medic al 2023-07-20 2023-07-20 Outpatient GC_GCBZW_Ka PRIV PRIV [id number] [facility] 00:00:00 00:00:00 diyala_S [id number] Medic al 2022-12-02 2022-12-02 Refill Radha Waggoner 1.2.840.1 [id number] Univers 00:00:00 00:00:00 B 78971.1.1 ity of 3.412.2.7 [place] .3.795984 .8 [facility] 2022-10-13 2022-10-13 Follow-Up Hanna Tabitha Latif 1.2.840.1 [id number] [facility] 11:00:00 11:00:00 Maliha Zheng 13604.1.1 ity of 3.412.2.7 [place] .3.719602 .8 [facility] 2022-10-13 2022-10-13 Outpatient TABITHA MARINELLI [facility] [id number] 09:07:47 10:06:00 [facility] 2022-10-13 2022-10-13 Follow-Up Zay 1.2.840.1 [id number] [facility] 10:00:00 10:00:00 Mandeep 88716.1.1 ity of 3.412.2.7 [place] .3.764797 .8 [facility] 2022-10-13 2022-10-13 Outpatient BRANDON BOYLE [facility] [id number] 08:41:17 09:22:51 MAKESDONNA [facility] 2022-10-13 2022-10-13 Leslie Pruitt 1.2.840.1 [id number] [facility] 07:45:00 08:45:00 Procedure Damaris 90901.1.1 it y of 3.412.2.7 [place] .3.288964 .8 [facility] 2022-10-13 2022-10-13 Outpatient BRANDON PRUITT MDA [facility] [id number] 07:18:19 07:18:19 DAMARIS Davey [facility] 2022-10-13 2022-10-13 Travel 1.2.840.1 1.2.297.317 [id number] [facility] 00:00:00 00:00:00 61163.1.1 350.1.13.41 ity of 3.412.2.[place].698 [place] .[place].147388 084.8 .8 [facility] 2022-08-23 2022-08-23 Outpatient BRANDON GIORDANO MDA [facility] [id number] 12:30:34 12:30:34 ASUNCION Mariscal o n 2021-10-13 2021-10-13 Outpatient BRANDON BOYLE, MDA MDA [id number] 12:44:59 12:48:22 MANDEEP chery n 2021-10-13 2021-10-13 Outpatient BRANDON HORN, MDA MDA [id number] 11:49:38 12:26:23 [facility] 2021-10-13 2021-10-13 Outpatient TABITHA MARINELLI [facility] [id number] 11:17:21 11:17:21 [facility] 2021-10-13 2021-10-13 Outpatient BRANDON FALK, MDA MDA [id number] 08:53:22 08:53:22 [facility] 2021-06-18 2021-06-18 Office Guille Mendoza UTP 1.2.840.114 [id number] [place] 13:29:02 16:15:46 Visit DENITA 350.1.13.58 H ealth [place] 9.2.7.2.686 [id number] 1 2021-05-25 2021-05-25 Office Guille Mendoza 1.2.840.114 [id number] [place] 13:40:19 14:33:20 Visit DENITA 350.1.13.58 H ealth [place] 9.2.7.2.686 [id number] 1 2021-05-21 2021-05-21 Outpatient BRANDON HORN, MDA MDA [id number] 09:44:40 10:41:16 [facility] 2021-03-05 2021-03-05 AppointGUILLE [place] UTP Oral & [id number] [place] 15:00:00 15:00:00 t; FARHANA MENDOZA Maxillofaci P yesika HAN DDS al Surgery ans 2021-02-19 2021-02-19 GUILLE [place]os UTP Oral & [id number] [place] 13:30:00 13:30:00 t; FARHANA MENDOZA Maxillofaci P hyklever HAN DDS al Surgery ans 2021-02-09 2021-02-09 GUILLE [place] UTP Oral & [id number] [place] 13:30:00 13:30:00 t; FARHANA MENDOZA Maxillofaci P hysiblas HAN, DDS al Surgery ans 2021-01-12 2021-01-12 AppointGUILLE [place], UTP Oral & [id number] [place] 14:00:00 14:00:00 t; FARHANA MENDOZA Maxillofaci P hysiblas HAN, DDS al Surgery ans 2020-11-10 2020-11-10 Appointangella M[place] UTP Oral & [id number] [place] 14:30:00 14:30:00 t; FARHANA MENDOZA Maxillofaci P hysiblas HAN, JACOBYS al Surgery ans 2020-10-19 2020-10-19 Outpatient BRANDON GIORDANO MDA MDA [id number] 00:00:00 00:00:00 ASUNCION bridges 2020-05-26 2020-05-26 Patient Doctor ALPHONSO 1.2.840.114 [id number] Univers 00:00:00 00:00:00 Secure Msg Unassigned, ELIDA 350.1.13.10 ity of [facility] 4.2.7.2.686 [place] as [id number] [address] 2020-05-25 2020-05-25 Laboratory Lab, [facility] Fam Pob I [facility] 1.2. 840.114 [id number] Univers 10:46:49 11:06:49 Only Contre[facility] 350.1.13.10 ity of [place] 4.2.7.2.686 [place] as Professio [id number] Sc dical [address] 2020-05-25 2020-05-25 Laboratory Lab, [facility] 1.2.840.114 [id number] 10:46:49 11:06:49 Only Fam Pob I Health 350.1.13.10 [place] 4.2.7.2.686 Professio [id number] [address] 2020-05-25 2020-05-25 Outpatient Ant GALO [facility] [id number] Univers 10:40:00 10:40:00 AYALA ity [facility] 2020-05-01 2020-05-01 Outpatient MATT LIAO MDA, MDA [id number] 08:52:51 09:44:31 [facility] 2015-10-28 2015-10-28 Outpatient nullFlavo [facility] [id number] Memoria 05:29:46 09:22:00 ant gary [place] 2015-10-28 2015-10-28 Outpatient 2.16.840. 2.16.840.1. 3 [id number] Memoria 05:29:46 09:22:00 1.143900. 741891.3.20 l 3.20 81.1999 Xander n 00 [facility] 2015-10-28 2015-10-28 Outpatient nullFlavo [facility] [id number] Memoria 05:29:46 09:22:00 ant Mayer 2015-06-01 2015-06-03 Inpatient nullFlavo [facility] [id number] Memoria 07:03:39 10:15:00 ant Mayer 2015-06-01 2015-06-03 Outpatient 2.16.840. 2.16.840.1. 2 [id number] Memoria 07:03:39 10:15:00 1.416276. 495777.3.20 l 3.20 81.1999 Xander n 00 [facility] 2015-06-01 2015-06-03 Inpatient nullFlavo [facility] [id number] Memoria 07:03:39 10:15:00 ant Mayer 2015-05-20 2015-05-20 OBS nullFlavo [facility] [id number] Memoria 09:08:07 12:56:00 ant Mayer 2015-05-20 2015-05-20 OBS nullFlavo [facility] [id number] Memoria 09:08:07 12:56:00 ant Mayer 2015-05-20 2015-05-20 Outpatient 2.16.840. 2.16.840.1. 2 [id number] Memoria 09:08:07 12:56:00 1.627076. 723392.3.20 l 3.20 81.1999 [facility] Test Description Test Time Test Comments Results Result Comments Source LABORATORY 2015-06-03 06:27:00 Test Item Value Reference Range Interpretation Comme nts Carbon Dioxide Level (test code = Carbon Dioxide Level) 28 24-32 [facility] HospitalAnfbazmKVATSJURCT4311-83-69 06:27:00 Test Item Value Reference Range Interpretation Comments Calcium Level (test code = Calcium 7.9 8.5-10.5 L Level) [facility] HospitalVoitvcwOXLTRTXFNM5810-17-14 06:27:00 Test Item Value Reference Range Interpretation Comments AGAP (test code = AGAP) 11.4 10.0-20.0 [facility] HospitalWdgcaimXNIZOGQWQI0861-36-32 06:27:00 Test Item Value Reference Range Interpretation Comments Glucose Lvl (test code = Glucose Lvl) 117 70-99 H [facility] HospitalKwuprjoPOMNOVSTGF4556-02-85 06:27:00 Test Item Value Reference Range Interpretation Comments Sodium Level (test code = Sodium Level) 138 135-145 [facility] HospitalEoetiprEIOFLOOLMI0242-01-66 06:27:00 Test Item Value Reference Range Interpretation Comments Chloride Level (test code = Chloride 103 95-109 Level) [facility] HospitalXsbxnanLRCFFXZGEJ7089-50-79 06:27:00 Test Item Value Reference Range Interpretation Comments Potassium Level (test code = Potassium 4.4 3.5-5.1 Level) [facility] HospitalEykervnELNIVSYFBS5535-45-78 06:27:00 Test Item Value Reference Range Interpretation Comments Creatinine (test code = Creatinine) 0.9 0.5-1.4 [facility] HospitalPvoveqfYQTWHERDNF5797-96-00 06:27:00 Test Item Value Reference Range Interpretation Comments BUN (test code = BUN) 11 7-22 [facility] HospitalJlpflnpPKIZVOFXBD8395-10-65 06:27:00 Test Item Value Reference Range Interpretation Comments Results (test code = Reported (06/03/2015 Results) 01:27:00) [facility] HospitalIxgtjubBRVFGIQJRG0435-71-91 06:27:00 Test Item Value Reference Range Interpretation Comments MCH (test code = MCH) 30.0 pg 27.0-31.0 [facility] HospitalXywtzcoIFQQJWGNYH3940-16-04 06:27:00 Test Item Value Reference Range Interpretation Comments MPV (test code = MPV) 8.9 7.4-10.4 [facility] HospitalVnpmrnpOOTCQINVOW5183-92-54 06:27:00 Test Item Value Reference Range Interpretation Comments MCHC (test code = MCHC) 32.6 32.0-36.0 [facility] HospitalKkklgivLXYWOJOJII3953-73-17 06:27:00 Test Item Value Reference Range Interpretation Comments RDW (test code = RDW) 13.7 11.5-14.5 [facility] HospitalFvtovchVIBKZKTHMO9671-94-71 06:27:00 Test Item Value Reference Range Interpretation Comments Platelet (test code = Platelet) 267 133-450 [facility] HospitalTuyhljmGWTLNNRXPU1523-37-51 06:27:00 Test Item Value Reference Range Interpretation Comments MCV (test code = MCV) 92.1 80.0-98.0 [facility] HospitalYxmfdktTGWCNPXIIB0768-98-39 06:27:00 Test Item Value Reference Range Interpretation Comments Hematocrit (test code = Hematocrit) 30.6 36.0-48.0 L [facility] HospitalEextbaaFIEXFECKAQ3005-82-01 06:27:00 Test Item Value Reference Range Interpretation Comments White Blood Count (test code = White 12.3 3.7-10.4 H Blood Count) [facility] HospitalGiqjeszJPYCSXTRYN8969-98-49 06:27:00 Test Item Value Reference Range Interpretation Comments Hemoglobin (test code = Hemoglobin) 10.0 12.0-16.0 L [facility] HospitalQnjzwmzYVARNNIYYA2597-70-35 06:27:00 Test Item Value Reference Range Interpretation Comments Red Blood Cell Count (test code = Red 3.32 4.20-5.40 L Blood Cell Count) [facility] HospitalSnxnoheIOEMOTPMAO0020-21-17 06:27:00 Test Item Value Reference Range Interpretation Comments Neutrophil % (test code = Neutrophil %) 64.6 45.0-75.0 [facility] HospitalVwtphiyHFXAXYMKPC7122-43-10 06:27:00 Test Item Value Reference Range Interpretation Comments Monocyte % (test code = Monocyte %) 8.7 2.0-12.0 [facility] HospitalYhwfvvsWTDHBRYCZG9756-01-33 06:27:00 Test Item Value Reference Range Interpretation Comments Lymphocyte % (test code = Lymphocyte %) 24.3 20.0-40.0 [facility] HospitalCvwqcuiWMVQDYZXVY1935-69-93 06:27:00 Test Item Value Reference Range Interpretation Comments Eosinophil % (test code 0.2 See_Comment [Au tomated message] The = Eosinophil %) system which generated this result tra nsmitted reference range : <=0.5. The reference r keila was not used to int erpret this result as normal/abnormal . [facility] H[id number] 06:27:00 Test Item Value Reference Range Interpretation Comments Basophil # (test code = 0.1 See_Comment [Au tomated message] The Basophil #) system which ge nerated this result tra nsmitted reference range : <=0.2. The reference r keila was not used to int erpret this result as normal/abnormal . [facility] HospitalLvfeiljRJDKYAOPTW2304-29-78 06:27:00 Test Item Value Reference Range Interpretation Comments Basophil % (test code = 0.6 See_Comment [Au tomated message] The Basophil %) system which ge nerated this result tra nsmitted reference range : <=1.0. The reference r keila was not used to int erpret this result as normal/abnormal . [facility] HospitalVglmutxYFAWBLYWHV3941-06-63 06:27:00 Test Item Value Reference Range Interpretation Comments Neutrophil # (test code = Neutrophil #) 7.9 1.5-8.1 [facility] H[id number] 06:27:00 Test Item Value Reference Range Interpretation Comments Lymphocyte # (test code = Lymphocyte #) 3.0 1.0-5.5 [facility] [id number] 06:27:00 Test Item Value Reference Range Interpretation Comments Monocyte # (test code = 1.1 See_Comment H [Au tomated message] The Monocyte #) system which ge nerated this result tra nsmitted reference range : <=0.8. The reference r keila was not used to int erpret this result as normal/abnormal . [facility] HospitalLslbyloPSRYXUYTDC6342-00-13 06:27:00 Test Item Value Reference Range Interpretation Comments Eosinophil # (test code 1.8 See_Comment [Au tomated message] The = Eosinophil #) system which generated this result tra nsmitted reference range : <=4.0. The reference r keila was not used to int erpret this result as normal/abnormal . [facility] HospitalGknqufsIBQEZMLDQL8745-73-26 06:27:00 Test Item Value Reference Range Interpretation Comments Results (test code = Reported (06/03/2015 Results) 01:27:00) [facility] HospitalEasndvnTOTCRDDMFQ2269-56-61 06:27:00 Test Item Value Reference Range Interpretation Comments eGFR (test code = eGFR) 80 [facility] HospitalFlusswgSGFERZGIUT8075-85-38 06:27:00 Test Item Value Reference Range Interpretation Comments Carbon Dioxide Level (test code = 28 24-32 Carbon Dioxide Level) [facility] HospitalIllitpoYDEYYCJVJE7210-27-97 06:27:00 Test Item Value Reference Range Interpretation Comments Calcium Level (test code = Calcium 7.9 8.5-10.5 L Level) [facility] HospitalWxqkdbqGNORRXUTBV3500-12-06 06:27:00 Test Item Value Reference Range Interpretation Comments AGAP (test code = AGAP) 11.4 10.0-20.0 [facility] HospitalVycswrrAKFYXNIVKH3264-60-00 06:27:00 Test Item Value Reference Range Interpretation Comments Glucose Lvl (test code = Glucose Lvl) 117 70-99 H [facility] HospitalKwcyqxbJZPILUKMNH1002-67-36 06:27:00 Test Item Value Reference Range Interpretation Comments Sodium Level (test code = Sodium Level) 138 135-145 [facility] HospitalNfocqnbNAUHPZQXJU6426-57-98 06:27:00 Test Item Value Reference Range Interpretation Comments Chloride Level (test code = Chloride 103 95-109 Level) [facility] HospitalFubyzkyDBWHQVTVET8177-66-29 06:27:00 Test Item Value Reference Range Interpretation Comments Potassium Level (test code = Potassium 4.4 3.5-5.1 Level) [facility] HospitalPrkscbwWKNSOBNQZL6554-34-07 06:27:00 Test Item Value Reference Range Interpretation Comments Creatinine (test code = Creatinine) 0.9 0.5-1.4 [facility] HospitalRmolzvmZICZVTMNYP9258-69-42 06:27:00 Test Item Value Reference Range Interpretation Comments BUN (test code = BUN) 11 7-22 [facility] HospitalHqjprnnWTFDPLAZWT0813-92-17 06:27:00 Test Item Value Reference Range Interpretation Comments Results (test code = Reported (06/03/2015 Results) 01:27:00) [facility] HospitalTeawlwzWQMHIELQHJ7018-10-72 06:27:00 Test Item Value Reference Range Interpretation Comments MCH (test code = MCH) 30.0 pg 27.0-31.0 [facility] HospitalDtajobcAQZUGBOFNC5001-73-15 06:27:00 Test Item Value Reference Range Interpretation Comments MPV (test code = MPV) 8.9 7.4-10.4 [facility] HospitalAqmlmhsOIJVADZLUU5804-05-28 06:27:00 Test Item Value Reference Range Interpretation Comments MCHC (test code = MCHC) 32.6 32.0-36.0 [facility] HospitalWsygsegPALWBHKMOD2923-64-49 06:27:00 Test Item Value Reference Range Interpretation Comments RDW (test code = RDW) 13.7 11.5-14.5 [facility] HospitalBimtlzdSPEVOWGZTR7009-22-03 06:27:00 Test Item Value Reference Range Interpretation Comments Platelet (test code = Platelet) 267 133-450 [facility] HospitalGzuykcyQVAHUUYEFC3827-23-72 06:27:00 Test Item Value Reference Range Interpretation Comments MCV (test code = MCV) 92.1 80.0-98.0 [facility] HospitalCidcozdUSKSJDMDXC1392-79-40 06:27:00 Test Item Value Reference Range Interpretation Comments Hematocrit (test code = Hematocrit) 30.6 36.0-48.0 L [facility] HospitalCaoikxuMIMGYQAGXN4963-61-57 06:27:00 Test Item Value Reference Range Interpretation Comments White Blood Count (test code = White 12.3 3.7-10.4 H Blood Count) [facility] HospitalTlizqazYCIGWIHZXW6938-13-05 06:27:00 Test Item Value Reference Range Interpretation Comments Hemoglobin (test code = Hemoglobin) 10.0 12.0-16.0 L [facility] HospitalQmlzbqgENIFEMVCMZ7020-79-18 06:27:00 Test Item Value Reference Range Interpretation Comments Red Blood Cell Count (test code = Red 3.32 4.20-5.40 L Blood Cell Count) [facility] HospitalXoucnvjXXDZXRTYFQ9924-11-65 06:27:00 Test Item Value Reference Range Interpretation Comments Neutrophil % (test code = Neutrophil %) 64.6 45.0-75.0 [facility] HospitalQxhqajuUIXMFXHCAM1423-35-82 06:27:00 Test Item Value Reference Range Interpretation Comments Monocyte % (test code = Monocyte %) 8.7 2.0-12.0 [facility] HospitalRwlzmpoHPWCJICOSE9438-73-83 06:27:00 Test Item Value Reference Range Interpretation Comments Lymphocyte % (test code = Lymphocyte %) 24.3 20.0-40.0 [facility] HospitalHqcrwpnNLCGZZIEKW2516-28-87 06:27:00 Test Item Value Reference Range Interpretation Comments Eosinophil % (test code 0.2 See_Comment [Au tomated message] The = Eosinophil %) system which generated this result tra nsmitted reference range : <=0.5. The reference r keila was not used to int erpret this result as normal/abnormal . [facility] HospitalMuvuckkDYQRXJEAKO4198-85-41 06:27:00 Test Item Value Reference Range Interpretation Comments Basophil # (test code = 0.1 See_Comment [Au tomated message] The Basophil #) system which ge nerated this result tra nsmitted reference range : <=0.2. The reference r keila was not used to int erpret this result as normal/abnormal . [facility] HospitalHoesrfwWGYUXZMOWE4603-69-35 06:27:00 Test Item Value Reference Range Interpretation Comments Basophil % (test code = 0.6 See_Comment [Au tomated message] The Basophil %) system which ge nerated this result tra nsmitted reference range : <=1.0. The reference r keila was not used to int erpret this result as normal/abnormal . [facility] HospitalEeislmwKEZAKBVDKI0785-72-00 06:27:00 Test Item Value Reference Range Interpretation Comments Neutrophil # (test code = Neutrophil #) 7.9 1.5-8.1 [facility] HospitalRcuizlqQTDPFELDWP3561-45-20 06:27:00 Test Item Value Reference Range Interpretation Comments Lymphocyte # (test code = Lymphocyte #) 3.0 1.0-5.5 [facility] HospitalDmyedaeAOJNZMGSAC5793-41-97 06:27:00 Test Item Value Reference Range Interpretation Comments Monocyte # (test code = 1.1 See_Comment H [Au tomated message] The Monocyte #) system which ge nerated this result tra nsmitted reference range : <=0.8. The reference r keila was not used to int erpret this result as normal/abnormal . [facility] HospitalWdmzgxeHCUDLIKADB7009-64-45 06:27:00 Test Item Value Reference Range Interpretation Comments Eosinophil # (test code 1.8 See_Comment [Au tomated message] The = Eosinophil #) system which generated this result tra nsmitted reference range : <=4.0. The reference r keila was not used to int erpret this result as normal/abnormal . [facility] HospitalJifrvboZDGMLNKXOP9642-83-05 06:27:00 Test Item Value Reference Range Interpretation Comments Results (test code = Reported (06/03/2015 Results) 01:27:00) [facility] HospitalLkymzvlJRTTLHAIRR4997-35-75 06:27:00 Test Item Value Reference Range Interpretation Comments eGFR (test code = eGFR) 80 [facility] HospitalUupjzlbHNHZQYDMQW8324-05-90 06:27:00 Test Item Value Reference Range Interpretation Comments Results (test code = Reported (06/03/2015 Results) 01:27:00) [facility] HospitalEopxbxdZJUFAAYUCY0457-52-83 06:27:00 Test Item Value Reference Range Interpretation Comments eGFR (test code = eGFR) 80 [facility] HospitalWlqcmgeZHKLUIHRWP6506-65-70 06:27:00 Test Item Value Reference Range Interpretation Comments Carbon Dioxide Level (test code = 28 24-32 Carbon Dioxide Level) [facility] HospitalRwekmxsPOQIGLNTZB8152-94-14 06:27:00 Test Item Value Reference Range Interpretation Comments Calcium Level (test code = Calcium 7.9 8.5-10.5 L Level) [facility] HospitalRehoiexEYTITOLEOS6700-97-31 06:27:00 Test Item Value Reference Range Interpretation Comments AGAP (test code = AGAP) 11.4 10.0-20.0 [facility] HospitalRtalkgdVUDFBKRWJX1897-01-41 06:27:00 Test Item Value Reference Range Interpretation Comments Glucose Lvl (test code = Glucose Lvl) 117 70-99 H [facility] HospitalEnualauPXUOGXKZSN6603-84-21 06:27:00 Test Item Value Reference Range Interpretation Comments Sodium Level (test code = Sodium Level) 138 135-145 [facility] HospitalFowutzoWFAIKSILRH5673-23-23 06:27:00 Test Item Value Reference Range Interpretation Comments Chloride Level (test code = Chloride 103 95-109 Level) [facility] HospitalTvrssbzHMLDALGCFQ0064-40-46 06:27:00 Test Item Value Reference Range Interpretation Comments Potassium Level (test code = Potassium 4.4 3.5-5.1 Level) [facility] HospitalIhkwldhQKSGRZUBEO7453-63-47 06:27:00 Test Item Value Reference Range Interpretation Comments Creatinine (test code = Creatinine) 0.9 0.5-1.4 [facility] HospitalRrfnyucCTQCSNOZGL1495-32-67 06:27:00 Test Item Value Reference Range Interpretation Comments BUN (test code = BUN) 11 7-22 [facility] HospitalLjaitmvYIPQBGUVGN2226-02-65 06:27:00 Test Item Value Reference Range Interpretation Comments Results (test code = Reported (06/03/2015 Results) 01:27:00) [place] 783615-07-29 06:27:00 Test Item Value Reference Range Interpretation Comments MCH (test code = MCH) 30.0 pg 27.0-31.0 [facility] HospitalKlvzrmeAKJJEBQUCQ0467-16-38 06:27:00 Test Item Value Reference Range Interpretation Comments MPV (test code = MPV) 8.9 7.4-10.4 [facility] HospitalQicjpqjBNLHEUFZIS2532-93-02 06:27:00 Test Item Value Reference Range Interpretation Comments MCHC (test code = MCHC) 32.6 32.0-36.0 [facility] HospitalPnaecvaWGGLWUBLSF0146-76-65 06:27:00 Test Item Value Reference Range Interpretation Comments RDW (test code = RDW) 13.7 11.5-14.5 [facility] HospitalQbshnwyTUDWUEOOTM6905-42-06 06:27:00 Test Item Value Reference Range Interpretation Comments Platelet (test code = Platelet) 267 133-450 [facility] HospitalRkivojpDCCKBTYPMQ5703-46-76 06:27:00 Test Item Value Reference Range Interpretation Comments MCV (test code = MCV) 92.1 80.0-98.0 [facility] HospitalCbvhhlfEUQUMMAKRS8237-15-78 06:27:00 Test Item Value Reference Range Interpretation Comments Hematocrit (test code = Hematocrit) 30.6 36.0-48.0 L [facility] HospitalIwwtfbnARQGCALLLE5979-59-01 06:27:00 Test Item Value Reference Range Interpretation Comments White Blood Count (test code = White 12.3 3.7-10.4 H Blood Count) [facility] HospitalMwlnmxuCHZJXGDJZN8844-54-39 06:27:00 Test Item Value Reference Range Interpretation Comments Hemoglobin (test code = Hemoglobin) 10.0 12.0-16.0 L [facility] HospitalOsyejdpBEKNBDYZJP9523-81-66 06:27:00 Test Item Value Reference Range Interpretation Comments Red Blood Cell Count (test code = Red 3.32 4.20-5.40 L Blood Cell Count) [facility] HospitalQnbkyhsHKLVXVKHBR8870-14-05 06:27:00 Test Item Value Reference Range Interpretation Comments Neutrophil % (test code = Neutrophil %) 64.6 45.0-75.0 [facility] HospitalLtfbsfdOQZOHKKOUT6077-11-70 06:27:00 Test Item Value Reference Range Interpretation Comments Monocyte % (test code = Monocyte %) 8.7 2.0-12.0 [facility] HospitalDjadbjzJTRUAPTCTR9191-43-69 06:27:00 Test Item Value Reference Range Interpretation Comments Lymphocyte % (test code = Lymphocyte %) 24.3 20.0-40.0 [facility] HospitalYswliiaQQRNGKEOSE6896-13-24 06:27:00 Test Item Value Reference Range Interpretation Comments Eosinophil % (test code = Eosinophil %) 0.2 <=0.5 [facility] HospitalBfklckiTISPLASNMY1488-29-58 06:27:00 Test Item Value Reference Range Interpretation Comments Basophil # (test code = Basophil #) 0.1 <=0.2 [facility] HospitalGmbefbpAUDEHBBNUB4591-89-72 06:27:00 Test Item Value Reference Range Interpretation Comments Basophil % (test code = Basophil %) 0.6 <=1.0 [facility] HospitalHxgacdmUDFKKXDYLB7084-90-24 06:27:00 Test Item Value Reference Range Interpretation Comments Neutrophil # (test code = Neutrophil #) 7.9 1.5-8.1 [facility] HospitalVvedxucYMSYCMKWAP4850-17-03 06:27:00 Test Item Value Reference Range Interpretation Comments Lymphocyte # (test code = Lymphocyte #) 3.0 1.0-5.5 [facility] HospitalOmstybtGXYGHVJVIH0299-66-82 06:27:00 Test Item Value Reference Range Interpretation Comments Monocyte # (test code = Monocyte #) 1.1 <=0.8 H [facility] HospitalRwlftulEQGOGSPAZV1980-23-01 06:27:00 Test Item Value Reference Range Interpretation Comments Eosinophil # (test code = Eosinophil #) 1.8 <=4.0 [facility] HospitalRjzlgusISWRGJNKCT1336-79-16 05:13:00 Test Item Value Reference Range Interpretation Comments MPV (test code = MPV) 8.9 7.4-10.4 [facility] HospitalBtzwfogNUQVNEIDQI0775-18-19 05:13:00 Test Item Value Reference Range Interpretation Comments MCHC (test code = MCHC) 33.6 32.0-36.0 [facility] HospitalLtmsvkaRHMBDZEBWJ9047-78-22 05:13:00 Test Item Value Reference Range Interpretation Comments MCH (test code = MCH) 30.7 pg 27.0-31.0 [facility] HospitalTpsdjjtFFAFAHQWOJ3816-86-09 05:13:00 Test Item Value Reference Range Interpretation Comments Platelet (test code = Platelet) 333 133-450 [facility] HospitalDfibguwDOUIIQCNXY8983-56-82 05:13:00 Test Item Value Reference Range Interpretation Comments RDW (test code = RDW) 13.3 11.5-14.5 [facility] HospitalHfskokjCFXBWBWEKO2451-79-50 05:13:00 Test Item Value Reference Range Interpretation Comments Hemoglobin (test code = Hemoglobin) 11.7 12.0-16.0 L [facility] HospitalIxoosplEKSKQNKWTA1077-16-35 05:13:00 Test Item Value Reference Range Interpretation Comments Hematocrit (test code = Hematocrit) 34.9 36.0-48.0 L [facility] HospitalLwbvveeFSWRNFQZCN0700-17-84 05:13:00 Test Item Value Reference Range Interpretation Comments MCV (test code = MCV) 91.3 80.0-98.0 [facility] HospitalIrsyqbrLOUQSCLSDY9511-24-75 05:13:00 Test Item Value Reference Range Interpretation Comments White Blood Count (test code = White 14.8 3.7-10.4 H Blood Count) [facility] HospitalMhoeekoRMPKWDHKCV1121-58-54 05:13:00 Test Item Value Reference Range Interpretation Comments Red Blood Cell Count (test code = Red 3.82 4.20-5.40 L Blood Cell Count) [facility] HospitalYwosnqkCJLUNNAANI8177-40-98 05:13:00 Test Item Value Reference Range Interpretation Comments Results (test code = Reported (06/02/2015 Results) 00:13:00) [facility] HospitalIarbwguADHJUKKLHB9027-45-60 05:13:00 Test Item Value Reference Range Interpretation Comments eGFR (test code = eGFR) 70 [facility] HospitalMdgnomnMDGOIVVECM8623-65-14 05:13:00 Test Item Value Reference Range Interpretation Comments Chloride Level (test code = Chloride 103 95-109 Level) [facility] HospitalVamaravRIDIQKUBQX6589-49-03 05:13:00 Test Item Value Reference Range Interpretation Comments Carbon Dioxide Level (test code = 27 24-32 Carbon Dioxide Level) [facility] HospitalMwwtsohFFLMPUJXCI6009-97-47 05:13:00 Test Item Value Reference Range Interpretation Comments AGAP (test code = AGAP) 13.5 10.0-20.0 [facility] HospitalNvszbroTIFRMJHGUQ3504-34-48 05:13:00 Test Item Value Reference Range Interpretation Comments Calcium Level (test code = Calcium 8.0 8.5-10.5 L Level) [facility] HospitalMitsshrFNUKLJXTLO3648-39-60 05:13:00 Test Item Value Reference Range Interpretation Comments BUN (test code = BUN) 9 7-22 [facility] HospitalOjzdfbyHKRDHKYEFM9352-07-56 05:13:00 Test Item Value Reference Range Interpretation Comments Creatinine (test code = Creatinine) 1.0 0.5-1.4 [facility] HospitalYgtkcmcTZYHRIFDDC8085-73-94 05:13:00 Test Item Value Reference Range Interpretation Comments Potassium Level (test code = Potassium 4.5 3.5-5.1 Level) [facility] HospitalNtqofitXKDGSEXHDI7875-27-36 05:13:00 Test Item Value Reference Range Interpretation Comments Sodium Level (test code = Sodium Level) 139 135-145 [facility] HospitalUbpexfvXSUCJNALLH0513-83-65 05:13:00 Test Item Value Reference Range Interpretation Comments Glucose Lvl (test code = Glucose Lvl) 126 70-99 H [facility] HospitalXopqdgzWOHJMLSGCB5968-76-88 05:13:00 Test Item Value Reference Range Interpretation Comments Results (test code = Reported (06/02/2015 Results) 00:13:00) [facility] HospitalWayossqODJIFQRIPE4543-46-48 05:13:00 Test Item Value Reference Range Interpretation Comments PLT Morph (test code = PLT Morph) Normal [facility] HospitalCajmakjSCMHFSJJTI3978-93-63 05:13:00 Test Item Value Reference Range Interpretation Comments RBC Morph (test code = RBC Morph) Normal [facility] HospitalRhlbxbtNNGOSMHTRF4199-23-57 05:13:00 Test Item Value Reference Range Interpretation Comments Basophil # (test code = 0.0 See_Comment [Au tomated message] The Basophil #) system which ge nerated this result tra nsmitted reference range : <=0.2. The reference r keila was not used to int erpret this result as normal/abnormal . [facility] HospitalWvwwtpnZPGNDNXDVI3982-19-50 05:13:00 Test Item Value Reference Range Interpretation Comments Eosinophil # (test code 0.1 See_Comment [Au tomated message] The = Eosinophil #) system which generated this result tra nsmitted reference range : <=4.0. The reference r keila was not used to int erpret this result as normal/abnormal . [facility] HospitalVbqrtpwHDHJZRNKWP7665-63-38 05:13:00 Test Item Value Reference Range Interpretation Comments Monocyte % (test code = Monocyte %) 8.2 2.0-12.0 [facility] HospitalYiuqmcdNTRQJDIKQH6600-24-47 05:13:00 Test Item Value Reference Range Interpretation Comments Lymphocyte % (test code = Lymphocyte %) 18.0 20.0-40.0 L [facility] HospitalStygzttEDHYHGEMQZ6713-38-09 05:13:00 Test Item Value Reference Range Interpretation Comments Neutrophil % (test code = Neutrophil %) 73.5 45.0-75.0 [facility] HospitalUmxmzjlCHLZYUMUPN0286-95-52 05:13:00 Test Item Value Reference Range Interpretation Comments Monocyte # (test code = 1.2 See_Comment H [Au tomated message] The Monocyte #) system which ge nerated this result tra nsmitted reference range : <=0.8. The reference r keila was not used to int erpret this result as normal/abnormal . [facility] HospitalWehsbzqUJMCQIIGJS9182-88-13 05:13:00 Test Item Value Reference Range Interpretation Comments Eosinophil % (test code 0.0 See_Comment [Au tomated message] The = Eosinophil %) system which generated this result tra nsmitted reference range : <=0.5. The reference r keila was not used to int erpret this result as normal/abnormal . [facility] HospitalKngqgyiCWRPFQWUCM9461-52-91 05:13:00 Test Item Value Reference Range Interpretation Comments Neutrophil # (test code = Neutrophil #) 10.9 1.5-8.1 H [facility] HospitalAadujaaMHVBZTZHET8503-19-80 05:13:00 Test Item Value Reference Range Interpretation Comments Lymphocyte # (test code = Lymphocyte #) 2.7 1.0-5.5 [facility] HospitalQgrsqriUYIGREBQFL5292-65-75 05:13:00 Test Item Value Reference Range Interpretation Comments Basophil % (test code = 0.2 See_Comment [Au tomated message] The Basophil %) system which ge nerated this result tra nsmitted reference range : <=1.0. The reference r keila was not used to int erpret this result as normal/abnormal . [facility] HospitalPlvwbeoBXIJALNMZD7008-82-60 05:13:00 Test Item Value Reference Range Interpretation Comments MPV (test code = MPV) 8.9 7.4-10.4 [facility] HospitalAanjngzRLPNOAYZEH2652-71-64 05:13:00 Test Item Value Reference Range Interpretation Comments MCHC (test code = MCHC) 33.6 32.0-36.0 [facility] HospitalIamxpajXZDAEIXTWU0380-62-62 05:13:00 Test Item Value Reference Range Interpretation Comments MCH (test code = MCH) 30.7 pg 27.0-31.0 [facility] HospitalPzzjiuyUATZTGQHOJ7959-66-96 05:13:00 Test Item Value Reference Range Interpretation Comments Platelet (test code = Platelet) 333 133-450 [facility] HospitalVyhqgciAYFMRHZVJP9049-67-10 05:13:00 Test Item Value Reference Range Interpretation Comments RDW (test code = RDW) 13.3 11.5-14.5 [facility] HospitalKpsybvuMNYSWWCWAI0110-57-67 05:13:00 Test Item Value Reference Range Interpretation Comments Hemoglobin (test code = Hemoglobin) 11.7 12.0-16.0 L [facility] HospitalNyfdowoJWSTLFLRNN2432-43-29 05:13:00 Test Item Value Reference Range Interpretation Comments Hematocrit (test code = Hematocrit) 34.9 36.0-48.0 L [facility] HospitalDvecdquZBDZKNMMER3293-09-68 05:13:00 Test Item Value Reference Range Interpretation Comments MCV (test code = MCV) 91.3 80.0-98.0 [facility] HospitalBudxtupOVJNGBRDLR9889-67-61 05:13:00 Test Item Value Reference Range Interpretation Comments White Blood Count (test code = White 14.8 3.7-10.4 H Blood Count) [facility] HospitalOhtvgijTFFDRTYQJG4134-55-31 05:13:00 Test Item Value Reference Range Interpretation Comments Red Blood Cell Count (test code = Red 3.82 4.20-5.40 L Blood Cell Count) [facility] HospitalDbnrdjtBRDJACBXLR9266-78-18 05:13:00 Test Item Value Reference Range Interpretation Comments Results (test code = Reported (06/02/2015 Results) 00:13:00) [facility] HospitalKwrenaeVAERVMXEBU4155-11-72 05:13:00 Test Item Value Reference Range Interpretation Comments eGFR (test code = eGFR) 70 [facility] HospitalPvkvlyvMMEFIHINQH4616-85-65 05:13:00 Test Item Value Reference Range Interpretation Comments Chloride Level (test code = Chloride 103 95-109 Level) [facility] HospitalRvfcjwjQIYSKCGAEU2155-57-18 05:13:00 Test Item Value Reference Range Interpretation Comments Carbon Dioxide Level (test code = 27 24-32 Carbon Dioxide Level) [facility] HospitalSwtxkmaBEFBGGPZPR6369-98-65 05:13:00 Test Item Value Reference Range Interpretation Comments AGAP (test code = AGAP) 13.5 10.0-20.0 [facility] HospitalSkpwxxvLMHIMHXCLP8677-06-62 05:13:00 Test Item Value Reference Range Interpretation Comments Calcium Level (test code = Calcium 8.0 8.5-10.5 L Level) [facility] HospitalQwqjyqnVAKXSFDIHX1639-83-82 05:13:00 Test Item Value Reference Range Interpretation Comments BUN (test code = BUN) 9 7-22 [facility] HospitalIjnkbcrVPEDTPAWFJ1065-41-03 05:13:00 Test Item Value Reference Range Interpretation Comments Creatinine (test code = Creatinine) 1.0 0.5-1.4 [facility] HospitalKdegbovCOMFHSLEYS3951-68-10 05:13:00 Test Item Value Reference Range Interpretation Comments Potassium Level (test code = Potassium 4.5 3.5-5.1 Level) [facility] HospitalUbepiinATBZLVESEC8739-22-20 05:13:00 Test Item Value Reference Range Interpretation Comments Sodium Level (test code = Sodium Level) 139 135-145 [facility] HospitalLwyigczEJLVVQSETI9943-85-97 05:13:00 Test Item Value Reference Range Interpretation Comments Glucose Lvl (test code = Glucose Lvl) 126 70-99 H [facility] HospitalTijpkuyLOREITILUR0073-80-80 05:13:00 Test Item Value Reference Range Interpretation Comments Results (test code = Reported (06/02/2015 Results) 00:13:00) [facility] HospitalIkednzvXDFSIARTLH6077-29-49 05:13:00 Test Item Value Reference Range Interpretation Comments PLT Morph (test code = PLT Morph) Normal [facility] HospitalXmefcizWXQBMVMSUO1075-60-25 05:13:00 Test Item Value Reference Range Interpretation Comments RBC Morph (test code = RBC Morph) Normal [facility] HospitalGyxqcxpLAKYJVVEQQ3503-59-74 05:13:00 Test Item Value Reference Range Interpretation Comments Basophil # (test code = 0.0 See_Comment [Au tomated message] The Basophil #) system which ge nerated this result tra nsmitted reference range : <=0.2. The reference r keila was not used to int erpret this result as normal/abnormal . [facility] HospitalCxqssmpGDVDOHEMYB9060-70-40 05:13:00 Test Item Value Reference Range Interpretation Comments Eosinophil # (test code 0.1 See_Comment [Au tomated message] The = Eosinophil #) system which generated this result tra nsmitted reference range : <=4.0. The reference r keila was not used to int erpret this result as normal/abnormal . [facility] HospitalQgwaihmWWFVCBZORD4897-98-59 05:13:00 Test Item Value Reference Range Interpretation Comments Monocyte % (test code = Monocyte %) 8.2 2.0-12.0 [facility] HospitalWlqplurDWHVXFQMMQ0494-96-26 05:13:00 Test Item Value Reference Range Interpretation Comments Lymphocyte % (test code = Lymphocyte %) 18.0 20.0-40.0 L [facility] HospitalEdbglzfSCEWUJZUED6901-37-70 05:13:00 Test Item Value Reference Range Interpretation Comments Neutrophil % (test code = Neutrophil %) 73.5 45.0-75.0 [facility] HospitalCbjdlhlECAWVFSTSA3916-18-40 05:13:00 Test Item Value Reference Range Interpretation Comments Monocyte # (test code = 1.2 See_Comment H [Au tomated message] The Monocyte #) system which ge nerated this result tra nsmitted reference range : <=0.8. The reference r keila was not used to int erpret this result as normal/abnormal . [facility] HospitalLwriubaLAAUVKYGBL9649-87-82 05:13:00 Test Item Value Reference Range Interpretation Comments Eosinophil % (test code 0.0 See_Comment [Au tomated message] The = Eosinophil %) system which generated this result tra nsmitted reference range : <=0.5. The reference r keila was not used to int erpret this result as normal/abnormal . [facility] HospitalIynrmdyHDZRTILYVI9415-52-97 05:13:00 Test Item Value Reference Range Interpretation Comments Neutrophil # (test code = Neutrophil #) 10.9 1.5-8.1 H [facility] HospitalGxjuoijQWVTSFWCIZ8613-36-78 05:13:00 Test Item Value Reference Range Interpretation Comments Lymphocyte # (test code = Lymphocyte #) 2.7 1.0-5.5 [facility] HospitalSktfkerVELFZFZQLU5428-37-32 05:13:00 Test Item Value Reference Range Interpretation Comments Basophil % (test code = 0.2 See_Comment [Au tomated message] The Basophil %) system which ge nerated this result tra nsmitted reference range : <=1.0. The reference r keila was not used to int erpret this result as normal/abnormal . [facility] HospitalThbelqcEYNOWQNKSW4671-18-24 05:13:00 Test Item Value Reference Range Interpretation Comments MPV (test code = MPV) 8.9 7.4-10.4 [facility] HospitalLwfntqzRUGEXQTBEL4055-70-98 05:13:00 Test Item Value Reference Range Interpretation Comments MCHC (test code = MCHC) 33.6 32.0-36.0 [facility] HospitalVslaanhYPDPJGLGJH1875-48-14 05:13:00 Test Item Value Reference Range Interpretation Comments MCH (test code = MCH) 30.7 pg 27.0-31.0 [facility] HospitalVmkthofRDCRWPVIWE3325-88-37 05:13:00 Test Item Value Reference Range Interpretation Comments Platelet (test code = Platelet) 333 133-450 [facility] HospitalUtjpesqPESVYXBUGQ5325-68-75 05:13:00 Test Item Value Reference Range Interpretation Comments RDW (test code = RDW) 13.3 11.5-14.5 [facility] HospitalCydcsloUEPFCHRGIA0986-29-88 05:13:00 Test Item Value Reference Range Interpretation Comments Hemoglobin (test code = Hemoglobin) 11.7 12.0-16.0 L [facility] HospitalFhvdxviOFBFFRDWTU4384-78-22 05:13:00 Test Item Value Reference Range Interpretation Comments Hematocrit (test code = Hematocrit) 34.9 36.0-48.0 L [facility] HospitalKlpxjbuNNBAZZCDWC7987-39-35 05:13:00 Test Item Value Reference Range Interpretation Comments MCV (test code = MCV) 91.3 80.0-98.0 [facility] HospitalGpekpkhSWOYOULDSF8623-94-56 05:13:00 Test Item Value Reference Range Interpretation Comments White Blood Count (test code = White 14.8 3.7-10.4 H Blood Count) [facility] HospitalMnadppcAOFKKGXOYZ6510-06-40 05:13:00 Test Item Value Reference Range Interpretation Comments Red Blood Cell Count (test code = Red 3.82 4.20-5.40 L Blood Cell Count) [facility] HospitalAzwtdmpFGFTRGDMUI2614-31-17 05:13:00 Test Item Value Reference Range Interpretation Comments Results (test code = Reported (06/02/2015 Results) 00:13:00) [facility] HospitalGvurxrbQTPNKKNWKW9532-22-43 05:13:00 Test Item Value Reference Range Interpretation Comments eGFR (test code = eGFR) 70 [facility] HospitalVcrygtmZVHCRRPUAW2060-19-51 05:13:00 Test Item Value Reference Range Interpretation Comments Chloride Level (test code = Chloride 103 95-109 Level) [facility] HospitalQlspxlzWIQWDBCFHS9916-07-60 05:13:00 Test Item Value Reference Range Interpretation Comments Carbon Dioxide Level (test code = 27 24-32 Carbon Dioxide Level) [facility] HospitalJxyirjiHCKQSFDKZX7007-06-25 05:13:00 Test Item Value Reference Range Interpretation Comments AGAP (test code = AGAP) 13.5 10.0-20.0 [facility] HospitalUitjkdwPLMINCWMZU8787-06-08 05:13:00 Test Item Value Reference Range Interpretation Comments Calcium Level (test code = Calcium 8.0 8.5-10.5 L Level) [facility] HospitalLsgcrzyAWMBFWMDSJ6893-96-63 05:13:00 Test Item Value Reference Range Interpretation Comments BUN (test code = BUN) 9 7-22 [facility] HospitalXzegvncQOYKWSKYPQ4286-84-04 05:13:00 Test Item Value Reference Range Interpretation Comments Creatinine (test code = Creatinine) 1.0 0.5-1.4 [facility] HospitalEqtajgqYGYMJIGFIK7782-02-70 05:13:00 Test Item Value Reference Range Interpretation Comments Potassium Level (test code = Potassium 4.5 3.5-5.1 Level) [facility] HospitalNpjcloyRAWDSYPRCL9358-28-02 05:13:00 Test Item Value Reference Range Interpretation Comments Sodium Level (test code = Sodium Level) 139 135-145 [facility] HospitalPopdyefGGUNRSUTIB9953-71-43 05:13:00 Test Item Value Reference Range Interpretation Comments Glucose Lvl (test code = Glucose Lvl) 126 70-99 H [facility] HospitalJlxrobuZKBAEGKXDY5301-61-88 05:13:00 Test Item Value Reference Range Interpretation Comments Results (test code = Reported (06/02/2015 Results) 00:13:00) [facility] HospitalEtzhkayOOBIZGZHQF4197-95-38 05:13:00 Test Item Value Reference Range Interpretation Comments PLT Morph (test code = PLT Morph) Normal [facility] HospitalZpxkhvcXHBUJHYFPG8012-25-49 05:13:00 Test Item Value Reference Range Interpretation Comments RBC Morph (test code = RBC Morph) Normal [facility] HospitalBxfcplvLUOZHOPJZB1206-99-32 05:13:00 Test Item Value Reference Range Interpretation Comments Basophil # (test code = Basophil #) 0.0 <=0.2 [facility] HospitalQsaovuqPOLUSFEMWK5602-82-87 05:13:00 Test Item Value Reference Range Interpretation Comments Eosinophil # (test code = Eosinophil #) 0.1 <=4.0 [facility] HospitalUzuynkjMWXAVRIVTH6418-32-50 05:13:00 Test Item Value Reference Range Interpretation Comments Monocyte % (test code = Monocyte %) 8.2 2.0-12.0 [facility] HospitalUheqrifTDSXFFCIXN9057-58-31 05:13:00 Test Item Value Reference Range Interpretation Comments Lymphocyte % (test code = Lymphocyte %) 18.0 20.0-40.0 L [facility] HospitalHgzzixlVGVFIDXJLO5629-39-49 05:13:00 Test Item Value Reference Range Interpretation Comments Neutrophil % (test code = Neutrophil %) 73.5 45.0-75.0 [facility] HospitalBvkbypfPTGERSGWBK3888-60-95 05:13:00 Test Item Value Reference Range Interpretation Comments Monocyte # (test code = Monocyte #) 1.2 <=0.8 H [facility] HospitalDbbnymsXTTCDWQXWE3159-86-86 05:13:00 Test Item Value Reference Range Interpretation Comments Eosinophil % (test code = Eosinophil %) 0.0 <=0.5 [facility] HospitalHemochuYWFEQMPFRB9044-59-95 05:13:00 Test Item Value Reference Range Interpretation Comments Neutrophil # (test code = Neutrophil #) 10.9 1.5-8.1 H [facility] HospitalGqvdqrzKBEGOMHAZW1010-31-65 05:13:00 Test Item Value Reference Range Interpretation Comments Lymphocyte # (test code = Lymphocyte #) 2.7 1.0-5.5 [facility] HospitalWqpwkzdJDHZVTHFTH9352-93-37 05:13:00 Test Item Value Reference Range Interpretation Comments Basophil % (test code = Basophil %) 0.2 <=1.0 [facility] HospitalNqyjzmmCCFXSUXMJB1317-95-46 13:32:00 Test Item Value Reference Range Interpretation Comments urine beta hcg (test Negative, Control code = urine beta hcg) Present (06/01/2015 08:32:00) [facility] HospitalNfnbgpaQXJHRQCOAB7120-39-30 13:32:00 Test Item Value Reference Range Interpretation Comments urine beta hcg (test Negative, Control code = urine beta hcg) Present (06/01/2015 08:32:00) [facility] HospitalDtwssfhSGRIZJZTIW2583-95-26 13:32:00 Test Item Value Reference Range Interpretation Comments urine beta hcg (test Negative, Control code = urine beta hcg) Present (06/01/2015 08:32:00) [facility] HospitalUamfgyoBEREVQSMKX4967-95-73 14:57:00 Test Item Value Reference Range Interpretation Comments urine beta hcg (test Negative, Control code = urine beta hcg) Present (05/20/2015 09:57:00) [facility] HospitalYhtlrzoYJTHTLQDRU4594-16-35 14:57:00 Test Item Value Reference Range Interpretation Comments urine beta hcg (test Negative, Control code = urine beta hcg) Present (05/20/2015 09:57:00) [facility] HospitalHvvjiupGGVTZGPCZP5517-22-45 14:57:00 Test Item Value Reference Range Interpretation Comments urine beta hcg (test Negative, Control code = urine beta hcg) Present (05/20/2015 09:57:00) [facility]
[2023-10-04 16:29] LABS: Specific Gravity 1.006 (1.005-1.030); Urine Bilirubin NEGATIVE (Negative); Urine Blood Negative (Negative); Urine Clarity Clear (Clear); Urine Color Colorless (Yellow); Urine Glucose NEGATIVE (Negative); Urine Protein NEGATIVE (Negative); Urine Urobilinogen Normal (Normal)
--- NOTE | 2023-10-04 18:01 | RAD REPORT ---
EXAM DESCRIPTION: US - Extremity Venous Uni Ltd - 10/04/2023 4:39 pm CLINICAL HISTORY: Right leg pain COMPARISON: None. TECHNIQUE: Real-time sonographic evaluation of the right lower extremity deep venous system was perf ormed. FINDINGS: Normal compressibility, flow augmentation, phasic flow and spontaneous flow is identified in the right lower extremity deep venous system. No intraluminal filling defects seen. IMPRESSION: No DVT in the right lower extremity.
--- NOTE | 2023-10-04 18:11 | EDPHYS ---
Physician Documentation [facility] Name: Sayra Peters Age: 48 yrs Sex: Female : 1975 Arrival Date: 10/04/2023 Time: 15:53 Bed 14 Private MD: ED Physician Domingo Chavez HPI: 10/04 16:12 This 48 yrs old Female presents to ER via Unassigned with complaints of Leg Pain, Back ms3 Pain, Abdominal Pain. 16:12 48-year-old female with past medical history of chronic back pain presents to the [facility] [place], [place] emergency department for right leg pain that began yesterday. Patient states the pain is sharp and deep. Patient states this is different than previous sciatica. Patient rates the pain a 05/15. Patient states her spine doctor is Dr. Saha. Patient denies urinary incontinence, numbness, weakness. Historical: - Allergies: 16:16 No Known Allergies; aa5 - PMHx: 16:16 None; aa5 - PSHx: 16:16 left wrist (September 2023); spine stimulator; Cholecystectomy; disc fusion; promise carpal aa5 tunnel; right lumpectomy; - Immunization history:: Adult Immunizations unknown. - Social history:: Smoking status: Patient denies any tobacco usage or history of. ROS: 16:12 Constitutional: Negative for fever, and chills. Neck: Negative for injury, pain, and ms3 swelling, Cardiovascular: Negative for chest pain, and palpitations. Respiratory: Negative for shortness of breath, cough, wheezing, and pleuritic chest pain, Abdomen/GI: Negative for abdominal pain, nausea, vomiting, diarrhea, and constipation, 16:12 Skin: Negative for injury, rash, and discoloration, 16:12 MS/extremity: Positive for pain, of the right leg, 16:12 All other systems are negative, Exam: 16:12 Constitutional: This is a well developed, well nourished patient who is awake, alert, ms3 and in no acute distress. Head/Face: Normocephalic, atraumatic. Chest/axilla: Normal chest wall appearance and motion. Nontender with no deformity. Cardiovascular: Regular rate and rhythm with a normal S1 and S2. No gallops, murmurs, or rubs. Normal PMI, no JVD. No pulse deficits. Respiratory: Lungs have equal breath sounds bilaterally, clear to auscultation and percussion. No rales, rhonchi or wheezes noted. No increased work of breathing, no retractions or nasal flaring. Abdomen/GI: Soft, non-tender, with normal bowel sounds. No distension or tympany. No guarding or rebound. No evidence of tenderness throughout. Skin: Warm, dry with normal turgor. Normal color with no rashes, no lesions, and no evidence of cellulitis. Vital Signs: 16:15 BP 133 / 91; Pulse 77; Resp 16 S; Temp 97.5(TE); Pulse Ox 100% on R/A; Weight 63.5 kg aa5 (R); Height 5 ft. 2 in. (R); 17:30 BP 128 / 88; Pulse 72; Resp 16; Pulse Ox 100% ; ko1 16:15 Body Mass Index 25.61 (63.50 kg, 157.48 cm) aa5 MDM: 16:12 Differential diagnosis: DVT versus right leg. ms3 16:15 Patient medically screened. ms3 17:56 Transition of care: After a detail discussion of the patient's case, care is ms3 transferred to Domingo Chavez MD. 10/04 16:12 Order name: Urinalysis w/ reflexes; Complete Time: 16:35 ms3 10/04 16:12 Order name: US Extremity Venous Unilateral Ltd; Complete Time: 18:10 ms3 Administered Medications: No medications were administered Disposition Summary: 10/04/23 18:10 Discharge Ordered Notes: Location: Home tyler Condition: Stable tyler Diagnosis - Pain in right leg tyler - Elevated blood-pressure reading, without diagnosis of hypertension tyler Followup: ms3 - With: Private Physician - When: 2 - 3 days - Reason: Recheck today's complaints Discharge Instructions: - Discharge Summary Sheet ms3 - Musculoskeletal Pain ms3 - DASH Eating Plan ms3 Forms: - Medication Reconciliation Form tyler - Thank You Letter tyler - Antibiotic Education tyler - Prescription Opioid Use tyler - Patient Portal Instructions tyler - Leadership Thank You Letter tyler Signatures: Dispatcher [employer] Domingo Rosenbaum MD MD cha Calderon, Audri, RN RN aa5 Javid Mccormick DO DO ms3
--- NOTE | 2023-10-04 18:11 | ER ---
Nurse's Notes [facility] Name: Sayra Peters Age: 48 yrs Sex: Female : 1975 Arrival Date: 10/04/2023 Time: 15:53 Bed 14 Private MD: Diagnosis: Pain in right leg;Elevated blood-pressure reading, without diagnosis of hypertension Presentation: 10/04 16:15 Chief complaint: Patient states: right leg pain that began yesterday, denies leg aa5 swelling, reports left wrist sx 2 weeks ago. Coronavirus screen: At this time, the client does not indicate any symptoms associated with coronavirus-19. Ebola Screen: Patient denies travel to an Ebola-affected area in the 21 days before illness onset. Initial Sepsis Screen: Does the patient meet any 2 criteria? No. Patient's initial sepsis screen is negative. Does the patient have a suspected source of infection? No. Patient's initial sepsis screen is negative. Risk Assessment: Do you want to hurt yourself or someone else? Patient reports no desire to harm self or others. Onset of symptoms was September 2023. 16:15 Method Of Arrival: Ambulatory aa5 16:15 Acuity: PASCUAL 3 aa5 Historical: - Allergies: 16:16 No Known Allergies; aa5 - PMHx: 16:16 None; aa5 - PSHx: 16:16 left wrist (September 2023); spine stimulator; Cholecystectomy; disc fusion; promise carpal aa5 tunnel; right lumpectomy; - Immunization history:: Adult Immunizations unknown. - Social history:: Smoking status: Patient denies any tobacco usage or history of. Screenin:30 [facility] ED Fall Risk Assessment (Adult) History of falling in the last 3 months, ko1 including since admission No falls in past 3 months (0 pts) Confusion or Disorientation No (0 pts) Intoxicated or Sedated No (0 pts) Impaired Gait No (0 pts) Mobility Assist Device Used No (0 pt) Altered Elimination No (0 pt) Score/Fall Risk Level 0 - 2 = Low Risk Oriented to surroundings, Maintained a safe environment, Educated pt \T\ family on fall prevention, incl call for assistance when getting out of bed, Assessed \T\ reinforced patient's understanding of fall precautions, Provided non-skid footwear, Hourly rounding (assess needs \T\ fall precautionary measures) done, Used ambulatory aids as needed (educated on \T\ assisted with), Used gait belt as appropriate. Abuse screen: Denies threats or abuse. Denies injuries from another. Nutritional screening: No deficits noted. Tuberculosis screening: No symptoms or risk factors identified. Assessment: 17:30 General: Appears in no apparent distress. Behavior is calm, cooperative. Pain: ko1 Complains of pain in right leg. Neuro: Level of Consciousness is awake, alert, obeys commands, Oriented to person, place, time, situation, Appropriate for age. Cardiovascular: No deficits noted. Respiratory: No deficits noted. GI: No deficits noted. : No deficits noted. EENT: No deficits noted. Derm: No deficits noted. Musculoskeletal: No deficits noted. Vital Signs: 16:15 BP 133 / 91; Pulse 77; Resp 16 S; Temp 97.5(TE); Pulse Ox 100% on R/A; Weight 63.5 kg aa5 (R); Height 5 ft. 2 in. (R); 17:30 BP 128 / 88; Pulse 72; Resp 16; Pulse Ox 100% ; ko1 16:15 Body Mass Index 25.61 (63.50 kg, 157.48 cm) aa5 ED Course: 15:59 Patient arrived in ED. mg5 16:02 Javid Mccormick DO is Attending Physician. ms3 16:15 Arm band placed on. aa5 16:16 Triage completed. aa5 16:41 US Extremity Venous Unilateral Ltd In Process Unspecified. EDMS 17:24 Tavia Avalos, RN is Primary Nurse. ko1 17:30 Patient has correct armband on for positive identification. Bed in low position. Call ko1 light in reach. Side rails up X 1. Provided Education on: na. Pulse ox on. NIBP on. Door closed. Noise minimized. Lights dimmed. Warm blanket given. 17:30 No provider procedures requiring assistance completed. Patient did not have IV access ko1 during this emergency room visit. 17:56 Attending Physician role handed off by Javid Mccormick DO ms3 17:56 Domingo Chavez MD is Attending Physician. ms3 Administered Medications: No medications were administered Medication: 17:30 VIS not applicable for this client. ko1 Outcome: 18:10 Discharge ordered by . tyler 18:31 Discharged to home ambulatory, ko1 18:31 Condition: stable 18:31 Discharge instructions given to patient, Instructed on discharge instructions, follow up and referral plans. Demonstrated understanding of instructions, follow-up care, 18:32 Patient left the ED. ko1 Signatures: Dispatcher [employer] EDDomingo Fulton MD MD cha Calderon, Audri, RN RN aa5 Javid Mccormick DO DO ms3 Tavia Avalos RN RN ko1 Mirta Nelson mg5 Corrections: (The following items were deleted from the chart) 16:18 16:15 Chief complaint: Patient states: right leg pain that began yesterday. aa5 aa5
[2023-10-04 18:43] VITALS: TEMP 97.5; O2SAT 100
[2023-10-04 18:44] VITALS: BP 128/88
== END 2023-10-04 18:32 | disposition home or self-care (01) ==
LOC: ER 15:53
DX: M79.604 Pain in right leg (principal); R03.0 Elevated blood-pressure reading, without diagnosis of hypertension
CPT/HCPCS: 81003; 93971; 99283

== ENCOUNTER 2023-11-02 08:40 | Day surgery (SDC) | payer BC ==
[2023-10-27 14:37] LABS: Absolute Lymphocytes (CBC) 1.6 K/uL (0.7-4.9); Hematocrit 34.6 % (36.0-45.0); Lymphocytes % 18.8 % (15.3-44.8); MCV 92.1 fL (80-100); MPV 7.5 fL (7.6-11.3); Platelets 283 thou/uL (152-406); RBC Red Blood Cell Count 3.76 M/uL (3.86-4.86)
[2023-10-27 14:53] LABS: Specific Gravity 1.018 (1.005-1.030); Urine Bacteria <20 /HPF (<20); Urine Bilirubin 1+ (Negative); Urine Blood Negative (Negative); Urine Clarity Turbid (Clear); Urine Color Light-Yellow (Yellow); Urine Glucose NEGATIVE (Negative); Urine Mucus Slight /HPF (None Seen); Urine Protein NEGATIVE (Negative); Urine RBC <5 /HPF (None Seen); Urine Urobilinogen Normal (Normal)
[2023-11-02] MEDS ORDERED: Ringers Lactate 1,000 ML IV ONE ×2 (08:57→13:29)
[2023-11-02] MEDS ORDERED: SCOPOLAMINE HYDROBROMIDE PATCH TD ONE (08:57)
[2023-11-02] MEDS ORDERED: VECURONIUM 10 MG/VIAL IV ONE (11:14)
[2023-11-02] MEDS ORDERED: LIDOCAINE 2% MPF 5 ML VIAL ONE (11:14)
[2023-11-02] MEDS ORDERED: ONDANSETRON 4 MG/2 ML VIAL ONE (11:14)
[2023-11-02] MEDS ORDERED: propofoL 200 MG/20 ML VIAL IV ONE (11:14)
[2023-11-02] MEDS ORDERED: dexAMETHasone 10 MG/ML VIAL ONE (11:14)
[2023-11-02] MEDS ORDERED: KETAMINE HCL IN 0.9 % NACL 50 MG/5 ML SYRINGE IV ONE (11:14)
[2023-11-02] MEDS ORDERED: MIDAZOLAM HCL 2 MG/2 ML INJ ONE (11:14)
[2023-11-02] MEDS ORDERED: FENTANYL CITR 250 MCG/5 ML ONE (11:14)
[2023-11-02] MEDS ORDERED: NS 0.9% VIAL 10 ML ONE (11:16)
[2023-11-02] MEDS: CEFAZOLIN SODIUM 2 GM/VIAL ONE ×2 (12:36→12:55)
[2023-11-02] MEDS: BUPIVACAINE 0.25% PF 30 ML VIAL ONE ×3 (12:36→13:17)
[2023-11-02] MEDS ORDERED: EPHEDRINE SULF 50 MG/ML VIAL ONE (12:53)
[2023-11-02] MEDS ORDERED: KETOROLAC 30 MG/ML INJ ONE (14:02)
[2023-11-02] MEDS ORDERED: NEOSTIGMINE 1 MG/ML -10 ML VIAL ONE (14:23)
[2023-11-02] MEDS ORDERED: GLYCOPYRROLATE 0.2 MG/ML SYR ONE (14:23)
[2023-11-02] MEDS: HYDROMORPHONE HCL 1 MG/ML INJ ONE ×2 (15:23→15:30)
[2023-11-02 15:35] VITALS: O2SAT 99
[2023-11-02] MEDS ORDERED: HYDROCODONE/APAP 5/325 MG TAB ONE (16:34)
[2023-11-02 18:13] VITALS: BP 115/73; TEMP 97.6
--- NOTE | 2023-11-02 23:59 | OP ---
Date of Procedure: 11/02/2023 Surgeon: Kay Maciel MD Aluminum Boat Inspector: None. Preoperative Diagnoses: 1.Pelvic pain. 2.Hematometra. 3.History of menorrhagia. 4.History of breast cancer. Postoperative Diagnoses: 1.Pelvic pain. 2.Hematometra. 3.History of menorrhagia. 4.History of breast cancer. 5.Bilateral hematosalpinx. 6.Endometriosis. Procedures Performed: 1.Total laparoscopic hysterectomy. 2.Bilateral salpingo-oophorectomy. 3.Endometriosis excision. Anesthesia: General endotracheal. Estimated Blood Loss: Minimal, less than 25 cc. Specimen: Bilateral tubes and ovaries and uterus. Complications: No complications. Drains: No drains. Findings: Bilateral hematosalpinx was noted. The uterus appeared to be possibly widened either from the hematometra or have some form of uterine congenital anomaly. Ovaries were completely unremarkab le. Endometriosis was noted on the cul-de-sac, peritoneum, bilateral uterosacral ligaments, and the round ligaments as well. The ovaries appeared to be atrophic. Vaginal cuff was closed with 0 PDS merino tures x5, 2 simple sutures in the angles and 3 fwlyjym-ke-icngx in the center. Indications: The patient is a 48-year-old patient, history of breast cancer, being treated. She had history of menorrhagia for which she underwent ablation prior to the breast cancer treatment, but af terwards she had menopause from either natural causes for menopause or could be from the breast cance r treatment and then subsequent antiestrogen therapy. She had an endometrial ablation for treatment of menorrhagia and she had amenorrhea prior to the [facility] cancer treatment, but now in the past few months she has been hospitalized with sudden onset pain, cyclical. She was in the ER and followed up with me with ultrasound that found hematometra. Hyster oscopy was performed to drain this and endometrial sampling was performed. No atypia or malignancy w as noted. We discussed about the options of ovarian preservation versus removal alongside hysterecto my, bilateral salpingectomy, and her oncologist had a recommendation for removal of ovaries, however, since the patient is symptomatic from perimenopausal symptoms, we will discuss postoperative hormone therapy or alternative nonhormonal therapy for her vasomotor symptoms. Description Of Procedure: After informed consent was re-verified, she was taken to the OR, placed in a supine fashion on operating room table. General anesthesia was given. 2 g of Ancef were given. SCDs were placed. Arms were tucked by the side, positioning was checked. Time-out was done. Chlora Prep for abdomen and Betadine for vulva, vagina, and perineum to prep. Speculum placed to expose the cervix. Anterior lip grasped with 2 Allis clamps. Uterus measured and I was only able to insert the uterine manipulator to about 7.5 cm, which was adequate. The cup was fitted against the cervix and then Perez dropped in the bladder and attached to a drainage. After this, the bottom was draped. An infraumbilical midline incision was made with a scalpel, 10 mm. Then, fascia was incised, entered directly with incising the peritoneum, then S retractor placed. William introduced after adequate in sufflation, site of entry was checked. Appendix was normal. Upper abdominal surfaces including the liver, omentum were all completely unremarkable as well as peritoneum. Endometriosis as noted in the findings. Ovaries atrophic. The ureters were traced from the pelvic b rim to the ureteric tunnel and had no anatomical distortion. After the procedure was started, the Li gaSure was used to take down the adnexa. The left utero-ovarian ligament was identified and taken down with the help of the LigaSure. Then, m esosalpinx, round ligament, and both broad leaves of the broad ligament were taken down to the uterin e vessels. The vessels were isolated anteriorly and posteriorly. Endometriosis in the posterior per itoneum was also excised and continued to be followed on the opposite side and it was excised as well . Anterior bladder flap was raised. The bladder was dissected inferiorly. The lateral aspect of the l eft uterus was exposed. The vessels were taken down under direct vision with the help of the LigaSur e. Then, I was able to take down the vessels and the parametrium here on the left side, similar dissecti on exactly was performed on the opposite side with the round ligament was taken down. Mesosalpinx op ened up, IP isolated, cauterized, cut. Then, rest of the mesosalpinx was taken down to the round lig ament. Round ligament was taken down and anterior and posterior broad ligaments opened up and cut. Vessels were isolated and cauterized and cut and the cardinal ligaments were cauterized and cut. Cir cumferential colpotomy with a monopolar hook blade and specimen pulled out through the vagina. Endometriosis from the posterior cul-de-sac and lateral mendoza was included with the peritoneal specim en as was seen. There was a small amount of endometriosis in the posterior cul-de-sac that was still present, but as she is asymptomatic from this, this was left alone. The vaginal cuff was closed with 0 PDS sutures, 2 simple angle sutures and 3 qbvhdnt-jk-daone in the middle. Excellent closure with full-thickness support. Uterosacrals were re-included into the closu re for support of the apex. Thorough irrigation and suction were performed. No anatomical distortions or mechanical or electrica l injury to the ureters. The trocars were removed. Gas was desufflated. Marcaine was injected into the skin and the fascia for local pain control. Fascia at the umbilicus was closed with the help of 0 Vicryl tag sutures, tied to each other, and simple 0 Vicryl suture at the suprapubic fascial site and skin incision closed with interrupted 5-0 Monocryl sutures in all incisions. The vaginal occlude r was removed. Perez was removed. Instrument, needle, and sponge counts were correct at the end of the case. The patient tolerated the procedure well. She was recovered from anesthesia and taken to PACU in stable condition. Her and her mother were debriefed about her procedure. SHARMAINE Voice ID: [id number] Report ID: [id number]
== END 2023-11-02 17:08 | disposition home or self-care (01) ==
LOC: OR 08:40
PROVIDERS: ATTEND Obstetrics & Gynecology
PROC: 0UT24ZZ Resection of Bilateral Ovaries, Percutaneous Endoscopic Approach (ICD-10-PCS; 2023-11-02)
PROC: 0UT74ZZ Resection of Bilateral Fallopian Tubes, Percutaneous Endoscopic Approach (ICD-10-PCS; 2023-11-02)
PROC: 0UBF4ZZ Excision of Cul-de-sac, Percutaneous Endoscopic Approach (ICD-10-PCS; 2023-11-02)
PROC: 0DBW4ZZ Excision of Peritoneum, Percutaneous Endoscopic Approach (ICD-10-PCS; 2023-11-02)
PROC: 0UB44ZZ Excision of Uterine Supporting Structure, Percutaneous Endoscopic Approach (ICD-10-PCS; 2023-11-02)
PROC: 0UT94ZZ Resection of Uterus, Percutaneous Endoscopic Approach (ICD-10-PCS; principal; 2023-11-02 10:30)
DX: R10.2 Pelvic and perineal pain (principal); N95.1 Menopausal and female climacteric states; N80.3C3 Endometriosis of bilateral uterosacral ligament(s), unspecified depth; N80.329 Endometriosis of the posterior cul-de-sac, unspecified depth; N72 Inflammatory disease of cervix uteri; N83.11 Corpus luteum cyst of right ovary; N83.202 Unspecified ovarian cyst, left side; Z85.3 Personal history of malignant neoplasm of breast
CPT/HCPCS: 85025; 81001; 36415; 86900; 86850; 86901; 88307; 58571; 58662; A4216; J2704; J2710; J2001; J2250; J3010; J1100; J1170; J2405; J7120 ×2

== ENCOUNTER 2025-03-23 17:15 | Emergency (ER) | payer BC ==
--- OUTSIDE RECORDS SUMMARY | 2025-03-23 17:19 | XMS REPORT | Clinical Summary ---
Author Name Unknown Organization [facility] Address [address] [place] [address] Care Team Providers Care Overhauler Helper Name Role Phone Mandeep Collazo MD Primary Care Provider [phone] Cori Weathers MD Unavailable Urszula Lechuga MD Unavailable Shakir Altman MD Unavailable [phone] Jena Son MD Unavailable Mk Sparks MD Unavailable [phone] Kay Maciel MD Unavailable [phone] Allergies No known active allergies Medications esomeprazole (NexIUM) 40 MG capsule Take 1 capsule (40 mg) by mouth every morning. Active montelukast (SINGULAIR) 10 mg tablet Take 1 tablet (10 mg) by mouth daily. Active zolpidem (AMBIEN) 10 mg tabletIndicatio ns:Restart this medication on the evening of 12/20/20 Take 1 tablet (10 mg) by mouth daily. 5 02/08/2017 Active venlafaxine (EFFEXOR) 37.5 mg tablet Take by mouth twice daily. Active omeprazole (PriLOSEC) 40 MG capsule Take 1 capsule (40 mg) by mouth daily. 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 10/12/2016 Cancer Staging:Clinical stage from 11/16/2016:Stage IA(T1b, N0, M0) - Signed by Alexsandra Mary MD on 11/17/2016 Encounters Date Type Department Care Team Description 10/07/2024 Telephone MD [facility] in [place] - Breast Medical Oncology [address] [place] [address] Radha Waggoner RN after 03/23/2024 Immunizations Immunization Administration Dates Next Due Influenza, Unspecified 10/10/2019,10/10/2019 Influenza, split virus, trivalent, preservative free 06/22/2020 Pneumococcal Conjugate 13-Valent 06/22/2020 Tdap 08/02/2018,08/02/2018 Surgical History Surgery Date Site/Laterality Comments BACK SURGERY 05/06/2015 - 06/05/2015 Disc fusion L4-5, S1 LAPAROSCOPIC CHOLECYSTECOMY 10/06/2015 - 11/05/2015 CARPAL TUNNEL RELEASE Bilateral TN MASTECTOMY PARTIAL 11/04/2016 Right Procedure: SEGMENTAL MASTECTOMY - NEEDLE LOC; Surgeon: Mandeep Collazo MD; Location: [facility]; Service: BREAST TN INTRAOP SENTINEL LYMPH NODE ID W/DYE INJECTION 11/04/2016 Right Procedure: INTRAOPERATIVE LYMPHATIC MAPPING; Surgeon: Mandeep Collazo MD; Location: [facility]; Service: BREAST TN BX/EXC LYMPH NODE OPEN DEEP AXILLARY NODE 11/04/2016 Axilla/Right Procedure: SENTINEL NODE BIOPSY - AXILLA; Surgeon: Mandeep Collazo MD; Location: [facility]; Service: BREAST TN REVISION OF RECONSTRUCTED BREAST 12/19/2020 Breast/Right Procedure: REVISION OF RECONSTRUCTED BREAST; Surgeon: Shakir Altman MD; [facility]; Service: PLS - PLASTIC SURGERY TN MASTOPEXY 12/19/2020 Breast/Left Procedure: MASTOPEXY FOR SYMMETRY; Surgeon: Shakir Altman MD; Location: [facility] OR; Service: PLS - PLASTIC SURGERY TN GRAFTING OF AUTOLOGOUS FAT BY LIPO 50 CC OR LESS 12/19/2020 Abdomen/N/A Procedure: GRAFTING OF AUTOLOGOUS FAT HARVESTED BY LIPOSUCTION TECHNIQUE TO BREASTS; Surgeon: Shakir Altman MD; Location: [facility] OR; Service: PLS - PLASTIC SURGERY SPINAL CORD STIMULATOR IMPLANT 12/07/2021 - 01/03/2022 Medical History Medical History Date Comments Restless legs syndrome (RLS) Arthritis Migraine Gastroesophageal reflux disease Environmental allergy Degeneration of lumbar intervertebral disc Social History Tobacco Use Types Packs/Day Years Used Date Smoking Tobacco: Never Smokeless Tobacco: Never Alcohol Use Standard Drinks/Week Comments Yes 0 (1 standard drink = 0.6 oz pur e alcohol) infrequent social consumption Comments No Sex and Gender Information Value Date Recorded Sex Assigned at Not on file Legal Sex Female 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 Gender Identity Not on file Sexual Orientation Not on file 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 Not on file Not on file Not on file Obstetrics History Para Term AB IAB SAB Ectopic Multiple Livin g Live Births 3 2 Date Outcome GA Total Labor Labor/2nd/3rd Weight Sex Type Anes PTL Brianna A1 A5 Name Clin Para Para Comments Menarche 9 Parity 20 Breast fed 4 mo OCP use ~26 yrs (discontinued yesterday) Currently on her menstrual period Plan of Treatment Health Maintenance Due Date Last Done Comments Pneumococcal Vaccine: 50+ Ye ars (2 of 2 - PPSV23) 2023 06/22/2020 COVID-19 Vaccine ( season) 2024 Influenza Vaccine (Season Ended) 2025 06/22/2020, 10/10/2019, 10/10/2019 [place] Advance Directives * Full Code (Latest Code Status on File) Date Activated Date Inactivated Comments 11/04/2016 11:56 AM 11/04/2016 3:47 PM Care Teams Overhauler Helper Relationship Specialty Start Date End Date Mandeep Collazo MD [address] [place] [id number] [email or web address] PCP - General Breast Surgery 10/11/16 Cori Weathers MD [address] [place] [id number] PCP - External Referring Obstetrics/Gynecology 10/11/16 Urszula Lechuga MD [address] [place] [email or web address] Consulting Physician Medical Oncology 10/17/16 Shakir Altman MD [address] [place] [phone] [email or web address] Consulting Physician Plastic and Reconstructive Surgery 12/02/20 Jena Son MD [address] [place] [id number] [email or web address] Consulting Physician Breast Medical Oncology 10/17/16 Mk Sparks MD [address] [place] [address] [email or web address] Practice 10/13/23 Kay Maciel MD [address] [place] [address] [email or web address] Obstetrics/Gynecology 10/13/23
[2025-03-23 17:48] LABS: Absolute Basophils 0.1 K/uL (0-0.5); Absolute Eosinophils 0.1 K/uL (0-0.5); Absolute Lymphocytes (CBC) 2.7 K/uL (0.7-4.9); Absolute Monocytes 0.5 K/uL (0.1-1.3); Absolute Neutrophil 4.3 K/uL (1.8-8.0); Basophils % 0.9 % (0-1.3); Eosinophils % 1.6 % (0-4.4); Hematocrit 34.6 % (36.0-45.0); Lymphocytes % 34.7 % (15.3-44.8); MCHC 34.7 g/dL (32.0-36.0); MCV 89.5 fL (80-100); MPV 8.1 fL (7.6-11.3); Monocytes % 7.1 % (3.3-12.3); Neutrophils % 55.7 % (41.7-73.7); Platelets 292 thou/uL (152-406); RBC Red Blood Cell Count 3.86 M/uL (3.86-4.86); Red Cell Distribution Width 14.7 % (12.1-15.2)
[2025-03-23 17:51] LABS: PT Prothrombin Time 11.4 SECONDS (10-13.0)
--- NOTE | 2025-03-23 18:04 | RAD REPORT ---
EXAM: Chest Single View HISTORY: 49 years Female CHEST PAIN COMPARISON: None. FINDINGS: LUNGS/PLEURA: The lungs are clear. No pleural effusions or pneumothorax. No pulmonary edema. CARDIAC/MEDIASTINUM: The cardiac silhouette is within normal limits. UPPER ABDOMEN: No significant abnormality. BONES: No acute abnormality. LINES/TUBES/OTHER: Spinal stimulator IMPRESSION: No evidence of acute cardiopulmonary disease.
[2025-03-23 18:05] LABS: ALT/SGPT 15 U/L (13-56); Albumin 3.8 g/dL (3.4-5.0); Albumin/Globulin Ratio 1.2 (1.1-1.8); Alkaline Phosphatase 95 U/L (45-117); Anion Gap 8.7 mEq/L (5.0-15.0); BUN Blood Urea Nitrogen 20 mg/dL (7-18); Bicarbonate 29 mEq/L (21-32); Bilirubin Total 0.3 mg/dL (0.2-1.0); Globulin 3.1 g/dL (2.3-3.5); Glomerular Filtration Rate 74 ml/min (=/>90); Glucose Level 96 mg/dL (74-106); Magnesium 1.9 mg/dL (1.6-2.4); NT PRO-BNP 173 pg/mL (<125); Potassium 3.7 mEq/L (3.5-5.1); Protein, Total 6.9 g/dL (6.4-8.2); Sodium Level 140 mEq/L (136-145); Troponin High Sensitivity 3.9 pg/mL (<58.9)
[2025-03-23 18:31] LABS: AST/SGOT < 10 U/L (15-37); Bilirubin Direct < 0.2 mg/dL (0-0.2); Bilirubin Indirect, Calculated 0.1 mg/dL (0.2-0.8)
--- NOTE | 2025-03-23 20:10 | EDPHYS ---
Physician Documentation [facility] Name: Sayra Peters Age: 49 yrs Sex: Female : 1975 Arrival Date: 03/23/2025 Time: 17:15 Bed 16 Private MD: ED Physician Eric Crawford HPI: 03/23 17:44 This 49 yrs old Female presents to ER via Ambulatory with complaints of Chest Pain. sp3 17:44 49-year-old female with history of diabetes presents with left-sided chest pain that sp3 started approximately 2 hours prior to arrival and is mainly subsided. Pain is worse on movement of her hand. No prior cardiac history noted. Patient denies any fever, headache, cough, shortness of breath, back pain, abdominal pain, vomiting, diarrhea, trauma, injury, or any other signs or symptoms on ROS at this time.. 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 - Infectious Disease History:: Denies. - Social history:: Smoking status: Patient denies any tobacco usage or history of. ROS: 17:44 Constitutional: Negative for fever, chills, and weight loss, Eyes: Negative for injury, sp3 pain, redness, and discharge, ENT: Negative for injury, pain, and discharge, Neck: Negative for injury, pain, and swelling, Respiratory: Negative for shortness of breath, cough, wheezing, and pleuritic chest pain, Abdomen/GI: Negative for abdominal pain, nausea, vomiting, diarrhea, and constipation, Back: Negative for injury and pain, : Negative for injury, bleeding, discharge, and swelling, Skin: Negative for injury, rash, and discoloration, Neuro: Negative for headache, weakness, numbness, tingling, and seizure, Psych: Negative for depression, anxiety, suicide ideation, homicidal ideation, and hallucinations, Allergy/Immunology: Negative for hives, rash, and allergies, Endocrine: Negative for neck swelling, polydipsia, polyuria, polyphagia, and marked weight changes, Hematologic/Lymphatic: Negative for swollen nodes, abnormal bleeding, and unusual bruising, 17:44 All other systems are negative, Exam: 17:45 Constitutional: This is a well developed, well nourished patient who is awake, alert, sp3 and in no acute distress. Head/Face: Normocephalic, atraumatic. Eyes: Pupils equal round and reactive to light, extra-ocular motions intact. Lids and lashes normal. Conjunctiva and sclera are non-icteric and not injected. Cornea within normal limits. Periorbital areas with no swelling, redness, or edema. ENT: Nares patent. No nasal discharge, no septal abnormalities noted. External auditory canals are clear. Oropharynx with no redness, swelling, or masses, exudates, or evidence of obstruction, uvula midline. Mucous membranes moist. Neck: Trachea midline, no thyromegaly or masses palpated, and no cervical lymphadenopathy. Supple, full range of motion without nuchal rigidity, or vertebral point tenderness. No Meningismus. Cardiovascular: Regular rate and rhythm with a normal S1 and S2. No gallops, murmurs, or rubs. Normal PMI, no JVD. No pulse deficits. Respiratory: Lungs have equal breath sounds bilaterally, clear to auscultation and percussion. No rales, rhonchi or wheezes noted. No increased work of breathing, no retractions or nasal flaring. Abdomen/GI: Soft, non-tender, with normal bowel sounds. No distension or tympany. No guarding or rebound. No evidence of tenderness throughout. Back: No spinal tenderness. No costovertebral tenderness. Full range of motion. Skin: Warm, dry with normal turgor. Normal color with no rashes, no lesions, and no evidence of cellulitis. MS/ Extremity: Pulses equal, no cyanosis. Neurovascular intact. Full, normal range of motion. Neuro: Awake and alert, GCS 15, oriented to person, place, time, and situation. Cranial nerves II-XII grossly intact. Motor strength 5/5 in all extremities. Sensory grossly intact. Cerebellar exam normal. Normal gait. Psych: Awake, alert, with orientation to person, place and time. Behavior, mood, and affect are within normal limits. 17:45 Cardiovascular: Patient has normal cardiac exam. Pain is reproducible on movement of the arm and palpation of the lateral pectoralis muscle., 17:50 ECG was reviewed by the Attending Physician. EKG demonstrates normal sinus rhythm at 62 sp3 bpm with normal intervals, normal QRS, normal axis nonspecific diffuse ST/T changes without evidence of acute ischemia. Vital Signs: 17:26 BP 121 / 67; Pulse 69; Resp 17; Temp 97.7; Pulse Ox 99% ; Weight 63.5 kg; Height 5 ft. ll1 2 in. ; Pain 7/10; 17:30 BP 134 / 84; Pulse 67; Resp 16; Pulse Ox 100% on R/A; db 18:30 BP 113 / 74; Pulse 67; Resp 16; Pulse Ox 97% on R/A; db 20:17 BP 114 / 72; Pulse 68; Resp 18; Pulse Ox 100% ; cp4 17:26 Body Mass Index 25.61 (63.50 kg, 157.48 cm) ll1 17:26 Pain Scale: Adult ll1 MDM: 17:26 Medical Screening Exam initiated sp3 17:45 Data reviewed: vital signs, nurses notes, lab test result(s), EKG, radiologic studies. sp3 17:50 ED course: 49-year-old female with musculoskeletal versus cardiac versus other chest sp3 pain. I med/tele suspicious of PE, TAD any other critical process. Workup will include EKG, chest x-ray and 2 sets of troponins 2 hours apart with follow-up by the night physician for final disposition.. 22:17 Differential diagnosis: ACS, nonspecific chest pain. HEART Score: History: Slightly rt Suspicious (0), ECG: Normal (0), Age: > 45 and < 65 years (1), Risk Factors: No Risk Factors Known (0), Troponin: < or = 1 x Normal Limit (0), Total Score = 1. Consideration of Admission/Observation Escalation of care including admission/observation considered. Lower chest pain, 2 negative troponins, no indications for admission at this time, stable for outpatient care.. Independent interpretation of the following test(s) in the Emergency Department X-Ray: My interpretation is No infiltrate seen on interpretation of x-ray images. Test considered but Not performed: CT: Low suspicion for PE, CT angiogram not indicated. Counseling: I had a detailed discussion with the patient and/or guardian regarding the historical points, exam findings, and any diagnostic results supporting the discharge/admit diagnosis, lab results, radiology results, the need for outpatient follow up, to return to the emergency department if symptoms worsen or persist or if there are any questions or concerns that arise at home. 03/23 17:26 Order name: Basic Metabolic Panel; Complete Time: 18:42 sp3 03/23 17:26 Order name: CBC with Diff; Complete Time: 18:29 sp3 03/23 17:26 Order name: LFT's; Complete Time: 18:42 sp3 03/23 17:26 Order name: Magnesium; Complete Time: 18:42 sp3 03/23 17:26 Order name: NT PRO-BNP; Complete Time: 18:42 sp3 03/23 17:26 Order name: PT-INR; Complete Time: 18:29 sp3 03/23 17:26 Order name: Troponin HS; Complete Time: 18:42 sp3 03/23 18:43 Order name: Troponin High Sensitivity: draw 2 hours after first draw; Complete Time: sp3 20:06 03/23 17:26 Order name: XRAY Chest (1 view); Complete Time: 18:29 sp3 03/23 17:26 Order name: EKG; Complete Time: 17:26 sp3 03/23 17:26 Order name: Cardiac monitoring; Complete Time: 17:33 sp3 03/23 17:26 Order name: EKG - Nurse/Tech; Complete Time: 17:33 sp3 03/23 17:26 Order name: IV Saline Lock; Complete Time: 17:33 sp3 03/23 17:26 Order name: Labs collected and sent; Complete Time: 17:33 sp3 03/23 17:26 Order name: O2 Per Protocol; Complete Time: 17:33 sp3 03/23 17:26 Order name: O2 Sat Monitoring; Complete Time: 17:33 sp3 Administered Medications: No medications were administered Disposition Summary: 03/23/25 20:09 Discharge Ordered Notes: Location: Home rt Problem: new rt Symptoms: have improved rt Condition: Stable rt Diagnosis - Chest pain, unspecified rt Followup: rt - With: Huy Curiel MD - When: 2 - 3 days - Reason: Discharge Instructions: - Discharge Summary Sheet rt - Nonspecific Chest Pain, Adult rt Forms: - Medication Reconciliation Form rt - Antibiotic Education rt - Prescription Opioid Use rt - Patient Portal Instructions rt - Leadership Thank You Letter rt Signatures: Dispatcher [employer] EDJoy Russell, RN RN ll1 Bibi Hanna MD MD sp3 Laurie Elias RN RN db Eric Crawford MD MD rt
--- NOTE | 2025-03-23 20:10 | ER ---
Nurse's Notes [facility] Name: Sayra Peters Age: 49 yrs Sex: Female : 1975 Arrival Date: 03/23/2025 Time: 17:15 Bed 16 Private MD: Diagnosis: Chest pain, unspecified Presentation: 03/23 17:26 Chief complaint: Patient states: L sided CP that radiates into neck area started 3 ll1 hours [employer]. Hurts more when she takes a deep breath. Coronavirus screen: Client denies travel out of the [place] in the last 14 days. At this time, the client does not indicate any symptoms associated with coronavirus-19. Ebola Screen: Patient denies travel to an Ebola-affected area in the 21 days before illness onset. Initial Sepsis Screen: Does the patient meet any 2 criteria? No. Patient's initial sepsis screen is negative. Does the patient have a suspected source of infection? No. Patient's initial sepsis screen is negative. Risk Assessment: Do you want to hurt yourself or someone else? Patient reports no desire to harm self or others. Onset of symptoms was March 23, 2025. 17:26 Method Of Arrival: Ambulatory ll1 17:26 Acuity: PASCUAL 3 ll1 Triage Assessment: 17:28 General: Appears uncomfortable, Behavior is calm, cooperative, appropriate for age. ll1 Pain: Complains of pain in L chest Pain currently is 7 out of 10 on a pain scale. Quality of pain is described as aching, sharp, Pain began 3 hours ago. Cardiovascular: Reports chest pain. 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 - Infectious Disease History:: Denies. - Social history:: Smoking status: Patient denies any tobacco usage or history of. Screenin:00 [facility] ED Fall Risk Assessment (Adult) History of falling in the last 3 months, db including since admission No falls in past 3 months (0 pts) Confusion or Disorientation No (0 pts) Intoxicated or Sedated No (0 pts) Impaired Gait No (0 pts) Mobility Assist Device Used No (0 pt) Altered Elimination No (0 pt) Score/Fall Risk Level 0 - 2 = Low Risk Oriented to surroundings, Maintained a safe environment. Abuse screen: Denies threats or abuse. Denies injuries from another. Nutritional screening: No deficits noted. Tuberculosis screening: No symptoms or risk factors identified. Assessment: 17:34 Reassessment: Patient appears in no apparent distress at this time. Patient and/or db family updated on plan of care and expected duration. Pain level reassessed. Patient is alert, oriented x 3, equal unlabored respirations, skin warm/dry/pink. General: Appears in no apparent distress. comfortable, Behavior is calm, cooperative. Pain: Complains of pain in chest Pain radiates to anterior aspect of left upper chest and left breast. 18:30 Reassessment: Patient appears in no apparent distress at this time. Patient and/or db family updated on plan of care and expected duration. Pain level reassessed. Patient is alert, oriented x 3, equal unlabored respirations, skin warm/dry/pink. General: Appears in no apparent distress. comfortable, Behavior is calm, cooperative. Neuro: Level of Consciousness is awake, alert, obeys commands, Oriented to person, place, time, situation. Cardiovascular: Reports chest pain. Respiratory: Airway is patent Respiratory effort is even, unlabored, Respiratory pattern is regular, symmetrical. 19:10 Reassessment: Patient appears in no apparent distress at this time. No changes from cp4 previously documented assessment. Patient and/or family updated on plan of care and expected duration. Pain level reassessed. Patient is alert, oriented x 3, equal unlabored respirations, skin warm/dry/pink. Vital Signs: 17:26 BP 121 / 67; Pulse 69; Resp 17; Temp 97.7; Pulse Ox 99% ; Weight 63.5 kg; Height 5 ft. ll1 2 in. ; Pain 7/10; 17:30 BP 134 / 84; Pulse 67; Resp 16; Pulse Ox 100% on R/A; db 18:30 BP 113 / 74; Pulse 67; Resp 16; Pulse Ox 97% on R/A; db 20:17 BP 114 / 72; Pulse 68; Resp 18; Pulse Ox 100% ; cp4 17:26 Body Mass Index 25.61 (63.50 kg, 157.48 cm) ll1 17:26 Pain Scale: Adult ll1 ED Course: 17:18 Patient arrived in ED. sj2 17:20 Arm band placed on Patient placed in an exam room, on a stretcher. ll1 17:25 Bibi Hanna MD is Attending Physician. sp3 17:28 Triage completed. ll1 17:32 Initial lab(s) drawn, by me, sent to lab. EKG done, reviewed by Bibi Hanna MD. db Inserted saline lock: 20 gauge in left antecubital area, using aseptic technique. Blood collected. Flushed with 10 mL NS. 17:33 Laurie Elias, RN is Primary Nurse. db 17:57 XRAY Chest (1 view) In Process Unspecified. EDMS 18:00 Patient has correct armband on for positive identification. Bed in low position. Call db light in reach. Side rails up X 1. Client placed on continuous cardiac and pulse oximetry monitoring. NIBP monitoring applied. laboratory monitor on. Pulse ox on. NIBP on. Warm blanket given. Pillow given. 19:10 Danay Schneider is Primary Nurse. cp4 19:15 Attending Physician role handed off by Bibi Hanna MD rt 19:15 Eric Crawford MD is Attending Physician. rt 19:30 Lab(s) recollected, by me, sent to lab. td1 20:09 Huy Curiel MD is Referral Physician. rt 20:36 Provided Education on: chest pain. cp4 20:36 No provider procedures requiring assistance completed. intact, bleeding controlled, No cp4 redness/swelling at site. Pressure dressing applied. Patient maintains SpO2 saturation greater than 95% on room air. Administered Medications: No medications were administered Medication: 18:00 VIS not applicable for this client. db Outcome: 20:09 Discharge ordered by . rt 20:36 Discharged to home ambulatory, cp4 20:36 Condition: stable 20:36 Discharge instructions given to patient, Instructed on discharge instructions, follow up and referral plans. Demonstrated understanding of instructions, follow-up care, 20:37 Patient left the ED. cp4 Signatures: Dispatcher [employer] EDMS Joy Morgan RN RN ll1 Bibi Hanna MD MD sp3 Laurie Elias RN RN db Eric Crawford MD MD rt Danay Schneider cp4 Charis Marsh sj2 Herbert Munoz td1
[2025-03-23 20:51] VITALS: TEMP 97.7
[2025-03-23 21:04] VITALS: BP 114/72; O2SAT 100
== END 2025-03-23 20:37 | disposition home or self-care (01) ==
LOC: ER 17:15
DX: R07.9 Chest pain, unspecified (principal)
CPT/HCPCS: 36415; 71045; 80048; 80076; 83735; 83880; 84484; 85025; 85610; 93005; 99284